=== PATIENT | female | born 1940 | race Caucasian/White ===

== ENCOUNTER → 2016-10-22 | Outpatient (CLI) | payer BC, OTHER ==
[~2016-10-22] MED LIST: LZL125 PO; MULT-190 PO; NAPR1CAP12 PO; NAPR220T40 PO; SIMV20TA2 PO
--- NOTE | 2016-10-22 08:16 | DIAGNOSTIC IMAGING REPORT ---
CHEST CT WITHOUT CONTRAST CT DOSE: 214.31 mGy.cm HISTORY: Tumor removed within the right chest. Follow-up. TECHNIQUE: Multiaxial CT images of the chest were performed without contrast. COMPARISON: Chest 03/23/2016. FINDINGS: The patient is status post resection of a large right pleural-based mass. The right lower lobe is surgically absent. Few linear scarlike densities remaining at the base of the right middle lobe. Volume loss and mild right mediastinal shift due to the right lower lobectomy. A 2 mm subpleural density within the left upper lobe on image 85 likely represents an area of scarring. Tiny focus of tree-in-bud nodular opacities within the lingula on image 157. No suspicious pulmonary nodules identified. No focal lung consolidations to suggest pneumonia. Remaining central airways are patent. Small right posterior basilar hydropneumothorax. This likely represents residual postoperative change. Postthoracotomy changes within the right ribs. No suspicious lytic or blastic osseous lesions. A few hypodense lesions within the kidneys and liver. These favor cysts. Peripelvic cysts versus fullness within the left renal collecting system. This is also unchanged. No significant change in size in the multiple small right posterior medial extrapleural soft tissue nodules. Dominant nodule on image 184 measures 12 x 5 mm. Few small nodules/cysts within the breasts remain unchanged. There are surgical clips within the right axilla. No mediastinal or hilar lymphadenopathy. IMPRESSION: 1. Status post resection of a large right-sided pleural-based mass. No evidence for recurrent or residual mass. 2. Multiple small right posterior medial extrapleural soft tissue nodules remain unchanged in size. Continued follow up is recommended to exclude the possibility of metastatic disease. 3. Small right posterior basal hydropneumothorax. 4. Postoperative changes within the right hemithorax as described above. Electronically signed by: Ovidio Albright M.D. 10/22/2016 8:15 AM Dictated Date/Time: 10/22/2016 7:56 AM
== END | disposition home or self-care (01) ==
LOC: C.CTS 07:16
PROVIDERS: ATTEND Surgery
DX: K21.9 Gastro-esophageal reflux disease without esophagitis (principal); R22.2 Localized swelling, mass and lump, trunk; Z98.890 Other specified postprocedural states

== ENCOUNTER → 2016-10-31 | Outpatient (CLI) | payer BC, OTHER ==
--- NOTE | 2016-10-31 16:13 | MAMMOGRAPHY REPORT ---
BILATERAL DIGITAL SCREENING MAMMOGRAM TOMOSYNTHESIS WITH CAD: 10/31/2016 CLINICAL HISTORY: Asymptomatic. Personal history of breast cancer. TECHNIQUE: Breast tomosynthesis in addition to standard 2D mammography was performed. Current study was also evaluated with a Computer Aided Detection (CAD) system. COMPARISON: Comparison is made to exams dated: 10/31/2015 mammogram, 10/28/2013 mammogram, 10/27/2012 m ammogram, 10/22/2011 mammogram, 10/29/2014 mammogram, and 01/03/2011 ultrasound biopsy - [facility]. BREAST COMPOSITION: There are scattered areas of fibroglandular density in both breasts. FINDINGS: There are stable bilateral circumscribed masses scattered in the breast. Expected dima ectural distortion and associated surgical clips in the upper outer posterior right breast at the si te of prior lumpectomy. There are benign coarse calcifications. A stable metallic biopsy marker in the anterior left breast. No new suspicious mass, architectural distortion or cluster of microcalc ifications is seen. IMPRESSION: ACR BI-RADS CATEGORY 2: BENIGN There is no mammographic evidence of malignancy. A 1 year screening mammogram is recommended. The p atient will receive written notification of the results. Approximately 10% of breast cancers are not detected with mammography. A negative mammographic repor t should not delay biopsy if a clinically suggestive mass is present. Altagracia Carrion M.D. ay/:10/31/2016 12:51:35 Prosthetic Technician: Sheila Tavarez, [facility] letter sent: Normal / BI-RADS Code: ACR BI-RADS Category 2: Benign
== END | disposition home or self-care (01) ==
LOC: C.MAMM 08:06
PROVIDERS: ATTEND Obstetrics & Gynecology
DX: Z12.31 Encounter for screening mammogram for malignant neoplasm of breast (principal)

== ENCOUNTER → 2016-11-02 | Outpatient (CLI) | payer BC, OTHER ==
[2016-11-02 09:50] LABS: URINE APPEARANCE CLEAR (CLEAR); URINE BILIRUBIN NEG (NEG); URINE COLOR YELLOW; URINE EPITHELIAL CELL AUTO >30 /lpf (0-5); URINE NITRITE NEG (NEG); URINE SPECIFIC GRAVITY 1.018 (1.000-1.030); UROBILINOGEN NEG (NEG)
[2016-11-02 09:53] LABS: BASO % 0.3 %; BASO ABS # 0.02 K/uL (0-0.2); COMPLETE YES; EOS % 2.6 %; HEMATOCRIT 44.8 % (37-47); IG% 0.3 %; LYMPH % 16.3 %; LYMPH ABS # 1.12 K/uL (1.2-3.4); MEAN CELL VOLUME 87.3 fL (80-100); MEAN CORPUSCULAR HEMOGLOBIN 29.2 pg (25-34); MEAN CORPUSCULAR HGB CONC 33.5 g/dl (32-36); MONO % 5.8 %; NEUT % 74.7 %; PLATELET COUNT 286 K/uL (130-400); RED BLOOD COUNT 5.13 M/uL (4.2-5.4); WHITE BLOOD COUNT 6.88 K/uL (4.8-10.8)
[2016-11-02 10:02] LABS: AST/SGOT 14 U/L (15-37); BLOOD UREA NITROGEN 24 mg/dl (7-18); BUN/CREATININE RATIO 25.7 (10-20); CALCIUM 9.1 mg/dl (8.5-10.1); CARBON DIOXIDE 28 mmol/L (21-32); CHLORIDE 108 mmol/L (98-107); CREATININE 0.92 mg/dl (0.60-1.20); GLUCOSE 85 mg/dl (70-99); MANUAL MICROSCOPIC REQUIRED? NO; POTASSIUM 3.7 mmol/L (3.5-5.1); REVIEW REQ? YES; SODIUM 145 mmol/L (136-145)
[2016-11-02 10:12] LABS: ALT/SGPT 27 U/L (12-78); CHOLESTEROL 154 mg/dl (0-200); CHOLESTEROL/HDL RATIO 2.5; HDL CHOLESTEROL 62 mg/dl; LDL CHOLESTEROL CALCULATED 75 mg/dl; TRIGLYCERIDES 85 mg/dl (0-150); VERY LOW DENSITY LIPOPROT CALC 17 mg/dl
[2016-11-02 10:26] LABS: ESTIMATED AVERAGE GLUCOSE 114 mg/dl; HA1C FLAG Normal (Normal)
--- NOTE | 2016-11-06 14:05 | CODING QUERY MEDICAL NECESSITY ---
SUPPORTING DIAGNOSIS NEEDED A supporting diagnosis is required for the test/procedure performed on this patient in order for us to be reimbursed by the patient's insurance. Please provide a supporting diagnosis for the following test/procedure listed below next to the test name along with your signature. *If there is no additional diagnosis for this patient that would support the following test/procedure please document that below next to the test/procedure. Test(s)/Procedure(s) that require a supporting diagnosis: * GLYCATED HEMOGLOBIN DIAGNOSIS: * DOS: 11/02/16 Provider Signature: Date: Thank you Silvia Jack Health Information Management Once completed, please kindly fax back to [phone] For questions please call [phone]
== END | disposition home or self-care (01) ==
LOC: C.LAB 06:28
PROVIDERS: ATTEND Internal Medicine
DX: E78.00 Pure hypercholesterolemia, unspecified (principal); R73.9 Hyperglycemia, unspecified

== ENCOUNTER → 2016-11-12 | Outpatient (CLI) | payer BC, OTHER ==
[2016-11-12 17:43] LABS: BASO % 0.3 %; BASO ABS # 0.02 K/uL (0-0.2); COMPLETE YES; EOS % 2.1 %; HEMATOCRIT 45.3 % (37-47); IG% 0.4 %; LYMPH % 15.2 %; LYMPH ABS # 1.03 K/uL (1.2-3.4); MEAN CELL VOLUME 87.1 fL (80-100); MEAN CORPUSCULAR HEMOGLOBIN 29.2 pg (25-34); MEAN CORPUSCULAR HGB CONC 33.6 g/dl (32-36); MEAN PLATELET VOLUME 9.8 fL (7.4-10.4); MONO % 7.8 %; NEUT % 74.2 %; PLATELET COUNT 298 K/uL (130-400); WHITE BLOOD COUNT 6.76 K/uL (4.8-10.8)
--- NOTE | 2016-11-16 12:05 | CODING QUERY MEDICAL NECESSITY ---
SUPPORTING DIAGNOSIS NEEDED A supporting diagnosis is required for the test/procedure performed on this patient in order for us to be reimbursed by the patient's insurance. Please provide a supporting diagnosis for the following test/procedure listed below next to the test name along with your signature. *If there is no additional diagnosis for this patient that would support the following test/procedure please document that below next to the test/procedure. Test(s)/Procedure(s) that require a supporting diagnosis: * C-REACTIVE PROTEIN DIAGNOSIS: * DOS: 11/12/16 Provider Signature: Date: Thank you Silvia Jack Health Information Management Once completed, please kindly fax back to [phone] For questions please call [phone]
== END | disposition home or self-care (01) ==
LOC: C.LAB1850 15:59
PROVIDERS: ATTEND Internal Medicine
DX: E78.00 Pure hypercholesterolemia, unspecified (principal); M19.90 Unspecified osteoarthritis, unspecified site

== ENCOUNTER → 2016-11-14 | Outpatient (CLI) | payer BC, OTHER ==
--- NOTE | 2016-11-14 10:15 | DIAGNOSTIC IMAGING REPORT ---
ABDOMINAL ULTRASOUND, RIGHT UPPER QUADRANT HISTORY: Hypercholesterolemia. Abdominal pain. COMPARISON: None. FINDINGS: The liver morphology is normal. Several hepatic cysts are noted. Several echogenic hepatic lesions measure up to 1.6 cm. There is no biliary ductal dilatation. The pancreas is sonographically normal. No gallbladder wall thickening is noted. A few nonmobile echogenic structures within the gallbladder without associated shadowing measure up to 7 mm. There are right renal cyst. There are suspected right-sided parapelvic cysts. IMPRESSION: 1. No evidence of acute cholecystitis. 2. Several nonmobile echogenic structures within the gallbladder which could reflect polyps or nonshadowing stones. 3. Several echogenic hepatic lesions. These are nonspecific although favor hemangiomas. A right upper quadrant ultrasound in 6 months to ensure stability is recommended. 4. Suspected right-sided nephrolithiasis. Tubular anechoic structures within the right renal sinus favor parapelvic cysts. Right hydronephrosis could appear similar although is considered less likely. Electronically signed by: Clement Geronimo M.D. 11/14/2016 10:14 AM Dictated Date/Time: 11/14/2016 9:06 AM
== END | disposition home or self-care (01) ==
LOC: C.ULTR 08:25
PROVIDERS: ATTEND Internal Medicine
DX: E78.00 Pure hypercholesterolemia, unspecified (principal); K76.9 Liver disease, unspecified

== ENCOUNTER → 2017-03-19 | Day surgery (SDC) | payer BC, OTHER ==
[2017-03-13 07:53] VITALS: Ht 167.6 cm; Wt 61.4 kg
[~2017-03-19] VITALS: Ht 167.6 cm; Wt 61.4 kg
[~2017-03-19] MED LIST changes: +ATROPINE SULFATE 0.1 MG/ML 5ML SYR IV PRN; +EpHEDrine SULFATE INJ 50 MG/ML AMP IV PRN; +LIDOCAINE HCL 2% 2 ML VIAL (20MG/ML) ONE; -NAPR1CAP12 PO; +PROPOFOL IV EMULSION 10 MG/ML 20 ML VIAL IV ONE; +SODIUM CHLORIDE 0.9% 500ML 500 ML IV ONE
--- NOTE | 2017-03-19 10:41 | Endo History and Physical ---
History & Physical Date of Service: Mar 19, 2017. Chief Complaint: Rectal Bleeding Referring Physician: Shamar Espinosa History of Present Illness 76 yo CF who presents for colonoscopy secondary to rectal bleeding. Past Medical History Arthritis, High Cholesterol, Other Past Surgical History Hx Cardiac Surgery: No Hx Internal Defibrillator: No Hx Pacemaker: No Hx Abdominal Surgery: Yes (ANA MARÍA, D&C) Hx of Implantable Prosthesis: No Hx Post-Op Nausea and Vomiting: No Hx Cancer Surgery: Yes (RT LUMPECTOMY WITH NODE DISECTION) Hx Thoracic Surgery: Yes (THORACOTOMY) Hx Orthopedic: No Hx Urinary Tract Surgery: No Family History None Social History Smoking Status: Never Smoker Hx Substance Use: No Hx Alcohol Use: No Allergies Coded Allergies: Penicillins (Verified Allergy, Mild, UNKNOWN, 03/13/17) Cephalosporins (Verified Allergy, Unknown, KEFLEX PER UNCODED ALLERGIES- UNKNOWN TO PT, 03/13/17) Current Medications Reported Home Medications Medications Dose Route/Sig Max Daily Dose Days Date Category Ocuvite Preservision (Multivitamins/Minerals) 1 Tab Tab 1 Tab PO BID 03/13/17 Reported Aleve (Naproxen Sodium) 220 Mg Tab 220 Mg PO DAILY PRN 03/13/17 Reported Zocor (Simvastatin) 20 Mg Tab 20 Mg PO HS 03/13/17 Reported Indapamide 1.25 Mg Tab 1 Tab PO QAM 03/13/17 Reported Vital Signs Weight (Kilograms): 61.36 Height (Feet): 5 Height (Inches): 6 Date Time Temp Pulse Resp B/P (MAP) Pulse Ox O2 Delivery O2 Flow Rate FiO2 03/19/17 10:13 36.6 72 20 160/73 (102) 96 Room Air Physical Exam General Appearance: WD/WN, no apparent distress Respiratory/Chest: Auscultation: breath sounds normal Cardiovascular: Heart Auscultation: RRR Abdomen: Bowel Sounds: normal Inspection & Palpation: soft, non-distended, no tenderness, guarding & rebound Assessment and Plan Assessment: 76 yo CF who presents for colonoscopy secondary to rectal bleeding. Plan: Proceed with colonoscopy.
--- NOTE | 2017-03-19 10:57 | Discharge Instructions ---
Endoscopy Patient Instructions Date / Procedure(s) Performed Mar 19, 2017. Colonoscopy Allergy Information Coded Allergies: Penicillins (Verified Allergy, Mild, UNKNOWN, 03/13/17) Cephalosporins (Verified Allergy, Unknown, KEFLEX PER UNCODED ALLERGIES- UNKNOWN TO PT, 03/13/17) Discharge Date / Findings Mar 19, 2017. Diverticulosis Internal and External hemorrhoids Medication Instructions OK to resume all medications today as prescribed Medications Dose Route/Sig Max Daily Dose Days Date Category Ocuvite Preservision (Multivitamins/Minerals) 1 Tab Tab 1 Tab PO BID 03/13/17 Reported Aleve (Naproxen Sodium) 220 Mg Tab 220 Mg PO DAILY PRN 03/13/17 Reported Zocor (Simvastatin) 20 Mg Tab 20 Mg PO HS 03/13/17 Reported Indapamide 1.25 Mg Tab 1 Tab PO QAM 03/13/17 Reported Provider Instructions Activity Restrictions - No exercising or heavy lifting for 24 hours. - Do not drink alcohol the day of the procedure. - Do not drive a car or operate machinery until the day after the procedure. - Do not make any important decisions or sign important papers in 24 hours after the procedure. Following Day: - Return to full activity which may include returning to work/school. Diet Start your diet with liquids and light foods (jello, soup, juice, toast). Then eat your usual diet if not nauseated. Treatment For Common After Affects For mild abdominal pain, bloating, or excessive gas: - Rest - Eat lightly - Lie on right side Follow-Up Information Follow-up with Shamar Espinosa as scheduled Anesthesia Information What You Should Know You have had a procedure that required some medicine to reduce anxiety and discomfort. This treatment is called moderate sedation. After receiving the treatment, you may be sleepy, but you will be able to breathe on your own. The effects of the treatment may last for several hours. Follow these instructions along with Activity/Diet recommendations noted above: * Do NOT do anything where dizziness or clumsiness would be dangerous. * Rest quietly at home today, then you can be up and about tomorrow. * Have a responsible person stay with you the rest of today. * You may have had an I.V. today. If so, you may take the dressing off later today. Recommendations Call your doctor if: * Trouble breathing * Continuous vomiting for more than 24 hours * Temperature above 101 degrees * Severe abdominal pain or bloating * Pain not relieved by pain medicine ordered * There is increased drainage or redness from any incision * A large amount of rectal bleeding greater than 2-3 tablespoons. (If you had a polyp/s removed or have hemorrhoids, a small amount of blood - from the rectum is to be expected.) * You have any unanswered questions or concerns. IN THE EVENT OF A SERIOUS EMERGENCY, GO TO THE NEAREST EMERGENCY ROOM Your discharge instructions were prepared by provider Chad Ballard. Patient Instructions Signature Page Kalyn Driver Patient (or Guardian) Signature/Date: I have read and understand the instructions given to me by my caregivers. Caregiver/RN/Doctor Signature/Date: The above-named patient and/or guardian has received patient instructions on this date. + Original Patient Signature Page (only) stays with chart. Please make copy for patient.
--- NOTE | 2017-03-19 11:03 | GI REPORT ---
Procedure Date: 03/19/2017 10:08 AM Procedure: Colonoscopy Indications: Rectal bleeding Medicines: Monitored Anesthesia Care Complications: No immediate complications. Estimated Blood Loss: Estimated blood loss: none. Procedure: Pre-Anesthesia Assessment: - Prior to the procedure, a History and Physical was performed, and patient medications and allergies were reviewed. The patient's tolerance of previous anesthesia was also reviewed. The risks and benefits of the procedure and the sedation options and risks were discussed with the patient. All questions were answered, and informed consent was obtained. Prior Anticoagulants: The patient has taken no previous anticoagulant or antiplatelet agents. ASA Grade Assessment: III - A patient with severe systemic disease. After reviewing the risks and benefits, the patient was deemed in satisfactory condition to undergo the procedure. After I obtained informed consent, the scope was passed under direct vision. Throughout the procedure, the patient's blood pressure, pulse, and oxygen saturations were monitored continuously. The Scope was introduced through the anus and advanced to the terminal ileum. The colonoscopy was performed without difficulty. The patient tolerated the procedure well. The quality of the bowel preparation was good. The terminal ileum, ileocecal valve, appendiceal orifice, and rectum were photographed. Findings: Multiple small-mouthed diverticula were found in the sigmoid colon. Non-bleeding external and internal hemorrhoids were found during retroflexion and during perianal exam. The hemorrhoids were small. Impression: - Diverticulosis in the sigmoid colon. - Non-bleeding external and internal hemorrhoids. - No specimens collected. Recommendation: - Resume previous diet. - Continue present medications. - No repeat colonoscopy due to age and the absence of advanced adenomas. - Return to primary care physician as previously scheduled. Chad Ballard, DO 03/19/2017 11:02:24 AM This report has been signed electronically. Note Initiated On: 03/19/2017 10:08 AM I attest to the content of the Intraoperative Record and orders documented therein, exceptions below
[2017-03-19 11:28] VITALS: BP 134/82; PULSE 65; O2SAT 97
--- NOTE | 2017-03-19 11:50 | Anesthesiology Progress Note ---
Anesthesia Post Op Note Date & Time Mar 19, 2017 at 11:50 Vital Signs Pain Intensity: 0 Vital Signs Past 12 Hours Date Time Temp Pulse Resp B/P (MAP) Pulse Ox O2 Delivery O2 Flow Rate FiO2 03/19/17 11:28 65 20 134/82 (99) 97 Room Air 03/19/17 11:13 65 20 146/77 (100) 97 Room Air 03/19/17 10:58 75 24 133/67 (89) 96 Room Air 03/19/17 10:13 36.6 72 20 160/73 (102) 96 Room Air Notes Mental Status: alert / awake / arousable, participated in evaluation Pt Amnestic to Procedure: Yes Nausea / Vomiting: adequately controlled Pain: adequately controlled Airway Patency, RR, SpO2: stable & adequate BP & HR: stable & adequate Hydration State: stable & adequate Anesthetic Complications: no major complications apparent
== END | disposition home or self-care (01) ==
LOC: C.GI 09:26
PROVIDERS: ATTEND Internal Medicine
DX: K62.5 Hemorrhage of anus and rectum (principal); K57.30 Diverticulosis of large intestine without perforation or abscess without bleeding; K64.4 Residual hemorrhoidal skin tags; K64.8 Other hemorrhoids; G47.33 Obstructive sleep apnea (adult) (pediatric); E78.00 Pure hypercholesterolemia, unspecified; I10 Essential (primary) hypertension; E78.5 Hyperlipidemia, unspecified; G47.30 Sleep apnea, unspecified; Z68.22 Body mass index [BMI] 22.0-22.9, adult; Z85.3 Personal history of malignant neoplasm of breast; Z88.0 Allergy status to penicillin

== ENCOUNTER → 2017-04-08 | Outpatient (CLI) | payer OTHER, BC ==
[~2017-04-08] MED LIST changes: -ATROPINE SULFATE 0.1 MG/ML 5ML SYR IV PRN; -EpHEDrine SULFATE INJ 50 MG/ML AMP IV PRN; -LIDOCAINE HCL 2% 2 ML VIAL (20MG/ML) ONE; -PROPOFOL IV EMULSION 10 MG/ML 20 ML VIAL IV ONE; -SODIUM CHLORIDE 0.9% 500ML 500 ML IV ONE
--- NOTE | 2017-04-08 14:22 | DIAGNOSTIC IMAGING REPORT ---
C-SPINE ROUTINE 4 OR 5 VIEWS CLINICAL HISTORY: 76 years-old Female presenting with NECK PAIN. TECHNIQUE: Frontal, lateral, bilateral oblique, and open-mouth odontoid views of the cervical spine were obtained. COMPARISON: None. FINDINGS: The C7 vertebral body is visualized. Multifocal degenerative changes. Vertebral body heights intact. Intervertebral disc space loss from C3-4 through C6-7. Lateral masses of C1 articulate normally with C2. No evidence of osseous neural foraminal narrowing. Slight widening of the facet joints at C5-6 bilaterally. Alignment otherwise preserved. No prevertebral soft tissue swelling. Possible suture margin noted in the paramediastinal right upper lobe. IMPRESSION: 1. Slight widening of the facet joints at C5-6 bilaterally. This could be degenerative in etiology given the presence of multilevel degenerative changes. Alignment is otherwise preserved. Electronically signed by: Renaldo Sage 04/08/2017 2:21 PM Dictated Date/Time: 04/08/2017 2:15 PM
== END | disposition home or self-care (01) ==
LOC: C.RAD1850 14:01
PROVIDERS: ATTEND Physician Assistant
DX: M54.2 Cervicalgia (principal)

== ENCOUNTER → 2017-05-27 | Outpatient (CLI) | payer BC, OTHER ==
[2017-05-27 09:39] LABS: BASO % 0.3 %; BASO ABS # 0.02 K/uL (0-0.2); COMPLETE YES; EOS % 3.9 %; HEMATOCRIT 46.7 % (37-47); IG% 0.3 %; LYMPH % 16.6 %; LYMPH ABS # 0.99 K/uL (1.2-3.4); MEAN CELL VOLUME 89.1 fL (80-100); MEAN CORPUSCULAR HEMOGLOBIN 28.8 pg (25-34); MEAN CORPUSCULAR HGB CONC 32.3 g/dl (32-36); MEAN PLATELET VOLUME 9.7 fL (7.4-10.4); MONO % 6.5 %; NEUT % 72.4 %; PLATELET COUNT 291 K/uL (130-400); RED BLOOD COUNT 5.24 M/uL (4.2-5.4); WHITE BLOOD COUNT 5.97 K/uL (4.8-10.8)
[2017-05-27 10:06] LABS: ESTIMATED AVERAGE GLUCOSE 117 mg/dl; HA1C FLAG Normal (Normal)
[2017-05-27 10:12] LABS: AST/SGOT 13 U/L (15-37); BLOOD UREA NITROGEN 21 mg/dl (7-18); BUN/CREATININE RATIO 25.8 (10-20); CALCIUM 9.1 mg/dl (8.5-10.1); CARBON DIOXIDE 28 mmol/L (21-32); CHLORIDE 108 mmol/L (98-107); GLUCOSE 82 mg/dl (70-99); POTASSIUM 3.6 mmol/L (3.5-5.1); SODIUM 144 mmol/L (136-145)
[2017-05-27 10:23] LABS: ALT/SGPT 22 U/L (12-78); CHOLESTEROL 148 mg/dl (0-200); CHOLESTEROL/HDL RATIO 2.8; HDL CHOLESTEROL 53 mg/dl; LDL CHOLESTEROL CALCULATED 70 mg/dl; TRIGLYCERIDES 123 mg/dl (0-150); VERY LOW DENSITY LIPOPROT CALC 25 mg/dl
--- NOTE | 2017-06-05 12:03 | CODING QUERY MEDICAL NECESSITY ---
CQSUPPORTING DIAGNOSIS NEEDED A supporting diagnosis is required for the test/procedure performed on this patient in order for us to be reimbursed by the patient's insurance. Please provide a supporting diagnosis for the following test/procedure listed below next to the test name along with your signature. *If there is no additional diagnosis for this patient that would support the following test/procedure please document that below next to the test/procedure. Test(s)/Procedure(s) that require a supporting diagnosis: DOS 05/27/17 GLYCATED HEMOGLOBIN TEST Provider Signature: Date: Thank you Tashia Martinez Health Information Management Once completed, please kindly fax back to [phone] For questions please call [phone]
== END | disposition home or self-care (01) ==
LOC: C.LAB 06:22
PROVIDERS: ATTEND Internal Medicine
DX: E78.00 Pure hypercholesterolemia, unspecified (principal); R73.9 Hyperglycemia, unspecified

== ENCOUNTER → 2017-08-07 | Outpatient (CLI) | payer BC, OTHER ==
[2016-08-08 13:18] VITALS: BP 128/67; PULSE 80
[2017-08-07 13:14] VITALS: BP 137/77; PULSE 76; TEMP 36.9; O2SAT 97
--- NOTE | 2017-08-07 14:06 | Radiation Oncology Follow-Up ---
Radiation Oncology Follow-Up Date of Visit Aug 07, 2017. Reason For Visit Annual follow-up Radiation Completion Date 01/06/06 Diagnosis (1) Intraductal carcinoma in situ of right breast Status: Resolved Onset Date: 2005 Stage: 0 Permanent Comment: High-grade DCIS of the right breast Tis apical N0M0 stage 0 Status post completion of radiation therapy 01/16/2006 received 6120 cGy Status post left breast biopsy 01/03/2011 showing adenosis with associated microcalcifications, fibrocystic changes with associated ductal hyperplasia Last Edited By: Lakia Jacobo on Aug 03, 2015 15:04 Interim History She's been doing well over this past year. She denies any changes to her breast. She's noted no masses or tenderness no change of the axilla. She's had no swelling of her arm. She is up-to-date on mammography. She had a mammogram 10/31/2016. There is no mammographic evidence of malignancy. A one- year screening mammogram was recommended. Her only complaint is generalized joint discomfort. This can be up to level . The pain is controlled with [id number] analgesics. She did have a colonoscopy 03/19/2017. This showed diverticulosis and hemorrhoids. She has been doing well from a respiratory standpoint. She has noted no increased shortness of breath. She has done well since her surgery in 2015. Allergies Coded Allergies: Penicillins (Verified Allergy, Mild, UNKNOWN, 03/13/17) Cephalosporins (Verified Allergy, Unknown, KEFLEX PER UNCODED ALLERGIES- UNKNOWN TO PT, 03/13/17) Home Medications Scheduled Indapamide (Indapamide), 1 TAB PO QAM Ocuvite Preservision (Ocuvite Preservision), 1 TAB PO BID Simvastatin (Zocor), 20 MG PO HS Scheduled PRN Naproxen Sodium (Aleve), 220 MG PO DAILY PRN for Pain Review of Systems Gastrointestinal: Symptoms: WNL, Rectal Bleeding GI Comments: Had colonoscopy on 03/19/17 diverticulosis and hemorrhoids; Oral: Symptoms: No Problems Respiratory: Symptoms: WNL Urinary: Symptoms: WNL Skin: Symptoms: No Problems Breast: Right Upper Arm Measurement: 29.0 Right Mid Arm Measurement: 23.0 Right Wrist Measurement: 16.5 Left Upper Arm Measurement: 28.5 Left Mid Arm Measurement: 22.5 Left Wrist Measurement: 15.8 Arm Dominence: Right Physical Exam Vital Signs Date Time Temp Pulse Resp B/P (MAP) Pulse Ox O2 Delivery O2 Flow Rate FiO2 08/07/17 13:14 36.9 76 20 137/77 97 Pain: Patient Pain Scale: 0 - 10 Initial Pain Intensity: 0.0 Fatigue: None General Appearance: no apparent distress Eyes: normal inspection, EOMI ENT: normal ENT inspection, hearing grossly normal Neck: no adenopathy, thyroid normal Respiratory/Chest: lungs clear, no respiratory distress, no accessory muscle use Breast: Breast examination reveals well-healed incision of the right breast. There are no masses or tenderness and no axillary adenopathy. She has no skin retractions or nipple changes. Using the [place] score cosmesis she has a excellent outcome. The left breast showed no masses or tenderness and no axillary adenopathy. Cardiovascular: regular rate, rhythm, no gallop, no murmur Extremities: no pedal edema Neurologic/Psychiatric: no motor/sensory deficits, alert, normal mood/affect Skin: warm/dry Laboratory Studies Test 05/22/17 12:06 05/27/17 06:46 White Blood Count 5.66 K/uL (4.8-10.8) 5.97 K/uL (4.8-10.8) Red Blood Count 5.11 M/uL (4.2-5.4) 5.24 M/uL (4.2-5.4) Hemoglobin 15.2 g/dL (12.0-16.0) 15.1 g/dL (12.0-16.0) Hematocrit 45.9 % (37-47) 46.7 % (37-47) Mean Corpuscular Volume 89.8 fL (80-100) 89.1 fL (80-100) Mean Corpuscular Hemoglobin 29.7 pg (25-34) 28.8 pg (25-34) Mean Corpuscular Hemoglobin Concent 33.1 g/dl (32-36) 32.3 g/dl (32-36) Platelet Count 261 K/uL (130-400) 291 K/uL (130-400) Mean Platelet Volume 9.1 fL (7.4-10.4) 9.7 fL (7.4-10.4) Neutrophils (%) (Auto) 68.8 % 72.4 % Lymphocytes (%) (Auto) 18.2 % 16.6 % Monocytes (%) (Auto) 8.5 % 6.5 % Eosinophils (%) (Auto) 4.1 % 3.9 % Basophils (%) (Auto) 0.2 % 0.3 % Neutrophils # (Auto) 3.90 K/uL (1.4-6.5) 4.32 K/uL (1.4-6.5) Lymphocytes # (Auto) 1.03 K/uL (1.2-3.4) 0.99 K/uL (1.2-3.4) Monocytes # (Auto) 0.48 K/uL (0.11-0.59) 0.39 K/uL (0.11-0.59) Eosinophils # (Auto) 0.23 K/uL (0-0.5) 0.23 K/uL (0-0.5) Basophils # (Auto) 0.01 K/uL (0-0.2) 0.02 K/uL (0-0.2) RDW Standard Deviation 45.6 fL (36.4-46.3) 44.9 fL (36.4-46.3) RDW Coefficient of Variation 13.8 % (11.5-14.5) 13.7 % (11.5-14.5) Immature Granulocyte % (Auto) 0.2 % 0.3 % Immature Granulocyte # (Auto) 0.01 K/uL (0.00-0.02) 0.02 K/uL (0.00-0.02) Sodium Level 144 mmol/L (136-145) Potassium Level 3.6 mmol/L (3.5-5.1) Chloride Level 108 mmol/L (98-107) Carbon Dioxide Level 28 mmol/L (21-32) Anion Gap 8.0 mmol/L (3-11) Blood Urea Nitrogen 21 mg/dl (7-18) Creatinine 0.80 mg/dl (0.60-1.20) Estimated GFR () 82.4 Estimated GFR (Non- 71.1 BUN/Creatinine Ratio 25.8 (10-20) Random Glucose 82 mg/dl (70-99) Estimated Average Glucose 117 mg/dl Hemoglobin A1c 5.7 % (4.5-5.6) Calcium Level 9.1 mg/dl (8.5-10.1) Aspartate Amino Transferase (AST) 13 U/L (15-37) Alanine Aminotransferase (ALT) 22 U/L (12-78) Total Creatine Kinase 74 U/L (26-192) Triglycerides Level 123 mg/dl (0-150) Cholesterol Level 148 mg/dl (0-200) HDL Cholesterol 53 mg/dl LDL Cholesterol, Calculated 70 mg/dl VLDL Cholesterol, Calculated 25 mg/dl Cholesterol/HDL Ratio 2.8 Thyroid Stimulating Hormone (TSH) 2.170 uIu/ml (0.300-4.500) Additional Studies Patient: TRAVIS BORREGO [facility] Rec: [id number] Address1: Critical access hospital[facility] Address2: Acct ID: [id number] Date: 1940 Sex: F Ref Phy: Att Phy: Jaiden Bajwa M.D. Flores Phy: Shamar Espinosa M.D. Inter Phy: Altagracia Carrion MD [facility] Zip: [place] [address] SC: C.MAMM Report #: [id number] Nursing Home Assistant Administrator: MALACHI Diagnosis: ASYMPTOMATAIC Service Date: 10/31/16 MNE: [id number] Ordering Dr: Jaiden Bajwa M.D. CC: Jaiden Bajwa M.D. CONF: DICTATED BY: Altagracia Carrion MD MAMMOGRAPHY REPORT BILATERAL DIGITAL SCREENING MAMMOGRAM TOMOSYNTHESIS WITH CAD: 10/31/2016 CLINICAL HISTORY: Asymptomatic. Personal history of breast cancer. TECHNIQUE: Breast tomosynthesis in addition to standard 2D mammography was performed. Current study was also evaluated with a Computer Aided Detection (CAD ) system. COMPARISON: Comparison is made to exams dated: 10/31/2015 mammogram, 10/28/2013 mammogram, 10/27/2012 mammogram, 10/22/2011 mammogram, 10/29/2014 mammogram, and 01/03/2011 ultrasound biopsy - [facility]. BREAST COMPOSITION: There are scattered areas of fibroglandular density in both breasts. FINDINGS: There are stable bilateral circumscribed masses scattered in the breast. Expected architectural distortion and associated surgical clips in the upper outer posterior right breast at the site of prior lumpectomy. There are benign coarse calcifications. A stable metallic biopsy marker in the anterior left breast. No new suspicious mass, architectural distortion or cluster of microcalcifications is seen. IMPRESSION: ACR BI-RADS CATEGORY 2: BENIGN There is no mammographic evidence of malignancy. A 1 year screening mammogram is recommended. The patient will receive written notification of the results. Approximately 10% of breast cancers are not detected with mammography. A negative mammographic report should not delay biopsy if a clinically suggestive mass is present. Altagracia Carrion M.D. ay/:10/31/2016 12:51:35 Laundry Housekeeping Aide: Sheila Tavarez, [facility] letter sent: Normal 10/01 BI-RADS Code: ACR BI-RADS Category 2: Benign Dictated by: Altagracia Carrion MD Signed by: Altagracia Carrion MD Assessment & Plan Plan: Continue annual mammography. She does have mammograms scheduled for October. Continue regular follow-up with her primary care provider. We asked her to return to our office in 1 year. She may call if she has any questions or concerns in the interim. Total Time In Follow-Up I spent 20 minutes speaking to the patient performing examination. I spent 15 minutes reviewing information and completing this note. Copy To Shamar Espinosa M.D.
== END | disposition home or self-care (01) ==
LOC: C.ONC 13:01
PROVIDERS: ATTEND Physician Assistant Medical
DX: Z08 Encounter for follow-up examination after completed treatment for malignant neoplasm (principal); Z92.3 Personal history of irradiation; Z85.3 Personal history of malignant neoplasm of breast

== ENCOUNTER → 2017-10-29 | Outpatient (CLI) | payer BC, OTHER ==
--- NOTE | 2017-10-29 07:34 | DIAGNOSTIC IMAGING REPORT ---
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 TECHNIQUE: Multidetector CT imaging of the chest was performed without the use of intravenous contrast. IV contrast: None. A dose lowering technique was used consistent with the principles of ALARA (as low as reasonably achievable). COMPARISON: 10/22/2016. CT DOSE (mGy.cm): The estimated cumulative dose is 200.84 mGy.cm. FINDINGS: Zipper Setter Chainstitch topogram: Architectural distortion of the right lung with rightward mediastinal shift, unchanged. On soft tissue windows, normal thyroid. Several ovoid masses in the breasts are indeterminate but may relate to intramammary lymph nodes. No axillary, supraclavicular, or mediastinal lymphadenopathy. Evaluation of the elizabeth limited without intravenous contrast. Atherosclerosis of the aorta. Mild multichamber enlargement of the heart. Coronary artery calcification. No pericardial or pleural effusion though there is extensive right pleural thickening as seen on prior exam. The previously noted soft tissue nodular focus along the right posterior paramediastinal region is unchanged in size and appearance and is intimately associated with transiting intercostal vessels. The slightly more inferior previously noted nodule is less apparent on the current exam. Several small soft tissue nodules noted in the anterior mediastinal fat (series 4 image 78 and 81). Prominent upper pole right renal cyst partially visualized. Several parapelvic cysts also suggested in the left kidney, incompletely visualized. On lung windows, the patient is status post right lower lobectomy. Resulting architectural distortion of the residual right upper and middle lobes is hyperexpansion. Peripheral subpleural reticulation in the right upper and middle lobes may relate to postsurgical change and/or scarring. Interval development of a lobular solid 1.5 cm nodule in the left upper lobe (series 4 image 152). Additional more central left upper lobe solid pulmonary nodule measuring 0.9 cm (see series 4 image 129). Diminutive fissural solid 3 mm nodule along the left major fissure (series 4 image 170). Dependent nodularity at the left lower lobe may represent atelectasis. Large airways patent. On bone windows, postsurgical changes of multiple right ribs. IMPRESSION: 1. Findings highly suspicious for recurrent/metastatic disease to the left upper lobe. The diminutive fissural nodule along the left major fissure may represent a pleural or parenchymal site of disease. 2. Post surgical changes of right lower lobectomy. Extensive right pleural thickening is not significantly changed from prior and may represent postsurgical scarring. 3. The previously noted extrapleural soft tissue nodules along the right posterior paramediastinal region are stable to less apparent on the current exam. These are not overly convincing for pleural metastatic disease. 4. New small nodularity in the right aspect of the anterior mediastinal fat raises concern for metastatic disease versus small lymph nodes. Attention on follow-up. 5. Several ovoid masses in the breast are indeterminate but may relate to intramammary lymph nodes. Mammographic correlation could be considered. The report will be called/faxed according to standard departmental protocol. Electronically signed by: Renaldo Sage M.D. 10/29/2017 7:32 AM Dictated Date/Time: 10/29/2017 7:16 AM
== END | disposition home or self-care (01) ==
LOC: C.CTS 06:42
PROVIDERS: ATTEND Surgery
DX: D49.2 Neoplasm of unspecified behavior of bone, soft tissue, and skin (principal)

== ENCOUNTER → 2017-11-04 | Outpatient (CLI) | payer BC, OTHER ==
--- NOTE | 2017-11-05 13:29 | MAMMOGRAPHY REPORT ---
BILATERAL DIGITAL SCREENING MAMMOGRAM TOMOSYNTHESIS WITH CAD: 11/04/2017 CLINICAL HISTORY: Asymptomatic. Personal history of breast cancer. TECHNIQUE: Breast tomosynthesis in addition to standard 2D mammography was performed. Current study was also evaluated with a Computer Aided Detection (CAD) system. COMPARISON: Comparison is made to exams dated: 10/31/2016 mammogram, 10/31/2015 mammogram, 10/29/2014 rl mogram, 10/28/2013 mammogram, 10/27/2012 mammogram, and 10/22/2011 mammogram - [facility]. BREAST COMPOSITION: There are scattered areas of fibroglandular density in both breasts. FINDINGS: There are benign bilateral rim and coarse calcifications. Expected architectural distorti on and surgical clips in the upper outer posterior right breast, at the site of prior lumpectomy. Be nign circumscribed round and oval masses in both breasts are also stable comparing to prior exams. No new suspicious mass, architectural distortion or cluster of suspicious microcalcifications is seen. IMPRESSION: ACR BI-RADS CATEGORY 2: BENIGN There is no mammographic evidence of malignancy. A 1 year screening mammogram is recommended. The pa tient will receive written notification of the results. Approximately 10% of breast cancers are not detected with mammography. A negative mammographic report should not delay biopsy if a clinically suggestive mass is present. Altagracia Carrion M.D. ay/:11/04/2017 15:16:09 Furniture Rental Consultant: Robert GUTIÉRREZ(Cassandra)(Mehran), [facility] letter sent: Normal 1/2 BI-RADS Code: ACR BI-RADS Category 2: Benign
== END | disposition home or self-care (01) ==
LOC: C.MAMM 08:07
PROVIDERS: ATTEND Obstetrics & Gynecology
DX: Z12.31 Encounter for screening mammogram for malignant neoplasm of breast (principal); Z85.3 Personal history of malignant neoplasm of breast

== ENCOUNTER → 2017-11-11 | Outpatient (CLI) | payer BC, OTHER ==
--- NOTE | 2017-11-11 12:04 | DIAGNOSTIC IMAGING REPORT ---
PET/CT SKULL-THIGH CLINICAL HISTORY: 77 years-old Female presenting with SINGLE PULM NODULE, history of right lower lobectomy, right breast lumpectomy, hysterectomy. TECHNIQUE: PET/CT was performed from the base of the skull through the proximal thighs following the intravenous administration of 12.75 mCi of F18-FDG. Blood glucose level 91 mg/dL. The injection was performed at 8:58 AM and imaging began at 10:[address] was performed for attenuation correction purposes and anatomic localization. COMPARISON: Chest CT from 10/29/2017. CT DOSE (mGy.cm): The estimated cumulative dose is 1156.30. FINDINGS: Head and neck: No FDG-avid mass in the visualized portion of the head or neck. Subcentimeter lymph node in the left supraclavicular fossa measures 5 mm in the short axis (series 2 image 53) (max SUV 1.66) Chest: 2 solid nodules in the left upper lobe (max SUV 1.56 in the larger nodule and 0.92 in the smaller nodule versus surrounding normal lung max SUV 0.47). Diminutive solid nodule along the left major fissure may be pleural or parenchymal/subpleural. Postsurgical changes of right lower lobectomy. Extensive right pleural thickening, likely scarring. Previously noted small solid nodularity within the right anterior mediastinal fat is not evident. Subcentimeter hypodense nodule in the right lobe of the thyroid is FDG avid (max SUV 3.59). Small nondescript focus of mild FDG avidity in the region of the left hilum likely represents a subcentimeter left hilar lymph node (max SUV 1.89 versus the mediastinum max SUV 2.05). Atherosclerosis of the aorta. Mild multichamber enlargement of the heart. Trace pericardial effusion. Right pleural thickening, unchanged. Central airways patent. Abdomen and pelvis: Normal physiologic distribution of radiotracer in the gastrointestinal and genitourinary tracts. No FDG avid lymphadenopathy or mass lesion. Hypodense lesion in the central liver indeterminate but likely hepatic cyst. Few additional hypodense lesions likely also hepatic cysts or hamartomas. These are photopenic. Focal nodular thickening of the left adrenal gland with an indeterminant density and mild FDG avidity. Right adrenal gland normal. Multiple hypodensities in the kidneys, many of which are parapelvic in location, likely cysts. These are photopenic. Nonobstructing 9 mm calculus at the lower pole the right kidney. No hydronephrosis. Under distended bladder. Surgically absent uterus. No adnexal masses. Diverticulosis of the sigmoid colon. Scattered diverticula noted elsewhere throughout the colon. The appendix is normal. No bowel obstruction. Atherosclerosis of aorta. Musculoskeletal: No FDG-avid or destructive osseous lesion. Degenerative changes of the spine. Postsurgical changes of the right ribs. IMPRESSION: 1. Mildly FDG avid solid left upper lobe nodules with mild FDG avidity in the left hilum possibly a subcentimeter lymph node. The degree of FDG avidity is not overwhelming for metastatic disease and less the primary disease is a carcinoma known to have poor FDG avidity. These are somewhat indeterminate by PET/CT but remains suspicious. 2. Minimally FDG avid subcentimeter lymph node in the left supraclavicular fossa. This is equivocal and does not strongly suggest metastatic disease. 3. FDG avid left thyroid nodule. It is unlikely that metastatic disease would spread to the thyroid, however, fine-needle aspiration could be considered as clinically indicated. 4. Postsurgical changes of right lower lobectomy with associated scarring. Electronically signed by: Renaldo Sage M.D. 11/11/2017 12:03 PM Dictated Date/Time: 11/11/2017 11:45 AM
== END | disposition home or self-care (01) ==
LOC: C.PET 08:27
PROVIDERS: ATTEND Surgery
DX: R91.1 Solitary pulmonary nodule (principal); D49.2 Neoplasm of unspecified behavior of bone, soft tissue, and skin

== ENCOUNTER 2017-11-15 05:39 | Day surgery (SDC) | payer BC, OTHER ==
[2017-11-07 08:25] VITALS: Ht 167.6 cm; Wt 64.7 kg
[2017-11-07 09:41] LABS: BASO % 0.2 %; BASO ABS # 0.01 K/uL (0-0.2); EOS ABS # 0.12 K/uL (0-0.5); HEMATOCRIT 46.1 % (37-47); HEMOGLOBIN 15.3 g/dL (12.0-16.0); IG# 0.01 K/uL (0.00-0.02); LYMPH % 17.4 %; LYMPH ABS # 1.07 K/uL (1.2-3.4); MEAN CELL VOLUME 88.1 fL (80-100); MEAN CORPUSCULAR HEMOGLOBIN 29.3 pg (25-34); MEAN CORPUSCULAR HGB CONC 33.2 g/dl (32-36); MEAN PLATELET VOLUME 9.4 fL (7.4-10.4); MONO % 6.2 %; MONO ABS # 0.38 K/uL (0.11-0.59); NEUT ABS # 4.55 K/uL (1.4-6.5); PLATELET COUNT 271 K/uL (130-400); RED CELL DISTRIBUTION WIDTH CV 13.7 % (11.5-14.5); RED CELL DISTRIBUTION WIDTH SD 44.4 fL (36.4-46.3); WHITE BLOOD COUNT 6.14 K/uL (4.8-10.8)
[2017-11-07 09:50] LABS: CALCIUM 9.2 mg/dl (8.5-10.1); CREATININE 0.84 mg/dl (0.60-1.20); POTASSIUM 3.6 mmol/L (3.5-5.1)
[~2017-11-15] VITALS: Ht 167.6 cm; Wt 64.7 kg
[2017-11-15] MEDS ORDERED: LACTATED RINGER'S 1000ML 1,000 ML IV SCH (06:00)
[2017-11-15 06:08] VITALS: BP 161/75; PULSE 74; TEMP 37; O2SAT 97
--- NOTE | 2017-11-15 06:14 | History & Physical Bridge Note ---
H&P Re-Evaluation Bridge Note: I have examined the patient, reviewed the History & Physical and in the interval since the performance of the History & Physical I have noted the following changes of clinical significance: No changes noted
[2017-11-15] MEDS ORDERED: LIDOCAINE HCL 2% 2 ML VIAL (20MG/ML) ONE (06:21)
[2017-11-15] MEDS ORDERED: PROPOFOL IV EMULSION 10 MG/ML 20 ML VIAL IV ONE (06:21)
[2017-11-15] MEDS ORDERED: ROCURONIUM BROMIDE 10 MG/ML 5 ML VIAL IV ONE (06:21)
[2017-11-15] MEDS ORDERED: FENTANYL CITRATE INJ 50 MCG/1 ML 2 ML VIAL ONE (06:21)
[2017-11-15] MEDS ORDERED: CLINDAMYCIN PHOS 150 MG/ML 2 ML VIAL ONE (06:26)
[2017-11-15] MEDS ORDERED: NURSING VERBAL MED ORDER ONE (06:30)
[2017-11-15] MEDS ORDERED: ONDANSETRON INJ 2 MG/ML 2 ML VIAL IV PRN (07:15)
[2017-11-15] MEDS ORDERED: ATROPINE SULFATE 0.1 MG/ML 5ML SYR IV PRN (07:15)
[2017-11-15] MEDS ORDERED: LABETALOL HCL IV 5 MG/ML 20ML IV PRN (07:15)
[2017-11-15] MEDS ORDERED: FENTANYL CITRATE INJ 50 MCG/1 ML 2 ML VIAL IV PRN (07:15)
--- NOTE | 2017-11-15 07:29 | Discharge Instructions ---
Discharge Instructions Date of Service Nov 15, 2017. Visit Reason for Visit: Solitary Fibrous Tumor, Lung Nodule Discharge Discharge Diagnosis / Problem: Solitary Fibrous Tumor, Lung Nodule Discharge Goals Goal(s): Learn about illness Activity Recommendations Activity Limitations: resume your previous activity (in 24 hours) Anesthesia . Post Anesthesia Instructions: If you have had General Anesthesia or IV Sedation: * Do not drive today. * Resume driving when surgeon permits. * Do not make important decisions or sign legal documents today. * Call surgeon for: 1. Temperature elevations greater than 101 degrees F. 2. Uncontrollable pain. 3. Excessive bleeding. 4. Persistent nausea and vomiting. 5. Medication intolerance (nausea, vomiting or rash). * For nausea and vomiting use only clear liquids such as: tea, soda, bouillon until nausea subsides, then gradually increase diet as tolerated. * If you have any concerns or questions, call your surgeon's office. If physician is unavailable and it is an emergency, call 911 or go to the nearest emergency room. . Instructions / Follow-Up Instructions / Follow-Up 1. You may cough up some blood. Call physician if excessive amount noted. 2. Keep your scheduled appointment with Dr. Park on November 25, 2017 @ 9: 45am. Diet Recommendations Recommended Home Diet: resume previous diet Pending Studies Studies pending at discharge: no Medical Emergencies . Who to Call and When: Medical Emergencies: If at any time you feel your situation is an emergency, please call 911 immediately. . Non-Emergent Contact Non-Emergency issues call your: Surgeon Call Non-Emergent contact if: you have a fever, your pain is not controlled . . "Provider Documentation" section prepared by Parker Alfonso. .
[2017-11-15] MEDS ORDERED: NEOSTIGMINE METHYLSULFATE 5 MG/5 ML SYR ONE (07:58)
[2017-11-15] MEDS ORDERED: GLYCOPYRROLATE INJ 0.2 MG/ML VIAL ONE (07:58)
[2017-11-15] MEDS ORDERED: ESMOLOL HCL 10 MG/ML 10 ML VIAL ONE (08:26)
--- NOTE | 2017-11-15 08:31 | [facility] Post Operative Brief Note ---
Immediate Operative Summary Operative Date Nov 15, 2017. Pre-Operative Diagnosis Left upper lobe nodules Post-Operative Diagnosis Same Procedure(s) Performed Navigational Bronchoscopy with Biopsy and placement of fudicial marker Surgeon Dr Park Telesales Team Leader Surgeon(s) Kirk Alfonso PA-C Estimated Blood Loss 5ml Findings Consistent with Post-Op Diagnosis Specimens All specimens handled by respiratory and lab Drains None Anesthesia Type General Complication(s) none Disposition Disposition: Recovery Room / PACU
--- NOTE | 2017-11-15 08:33 | DIAGNOSTIC IMAGING REPORT ---
CHEST 1 VIEW FRONTAL CLINICAL HISTORY: NAVIGATIONAL BRONCH TECHNIQUE: Image intensifier COMPARISON STUDY: None FINDINGS: Findings consistent with image intensifier guidance for navigational bronchoscopy. IMPRESSION: Navigational bronchoscopy The above report was generated using voice recognition software. It may contain grammatical, syntax or spelling errors. Electronically signed by: Anshul Robles M.D. 11/15/2017 8:32 AM Dictated Date/Time: 11/15/2017 8:32 AM
--- NOTE | 2017-11-15 08:51 | [facility] Operative Report ---
Operative Report Date of Service Nov 15, 2017. 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 Postoperative diagnosis: Same Procedure: Navigational bronchoscopy with biopsy left upper lobe lesions 2 Placement of fiducial marker left lower lobe nodule Surgeon: Dr. Park Anesthesia: General anesthesia with endotracheal intubation Indications for procedure and findings: This 77-year-old female found to have a huge solitary fibrous tumor which I did a right thoracotomy and a right lower lobectomy. Arm margins were negative for residual disease and her lymph nodes were negative. I have been following her for last 20 months or so and was concerned when her last surveillance CT scan showed 2 rounded nodules which were new in her left upper lobe. I discussed her in our cancer conference and elected to proceed with a navigational bronchoscopy. On 11/15/2017 the patient underwent uncomplicated navigational bronchoscopy. I did approximately 20 needle biopsy of these 2 lesions with forceps biopsies. It was difficult to access as they were not close to the airway. Our rapid on- site evaluation did not reveal any malignant cells. I left a fiducial marker at the larger of the 2 lesions which appear to be amenable to a thoracoscopic biopsy if necessary Procedure: Patient was brought to the operating room and laid supine position. General anesthesia was induced and endotracheal intubation was performed. After appropriate timeout had been called and prophylactic antibiotics given the fiberoptic bronchoscope was inserted through the endotracheal tube. The navigational probe from the [employer] navigational bronchoscopy system was inserted and the airways registered. We then went to her first target which was in the more proximal airway and more centrally located lesion. We got out to this and could identify it with our ultrasound however it was beside the airway and difficult to get to. I it appeared I had the needle in it and I was checking it in real-time with the radial ultrasound probe. It was difficult to get the needle into this lesion given the angle. I did this several times and we did not see any malignant cells on the rapid on-site evaluation. Attention was then turned towards the larger nodule which was a bit more peripheral just above the fissure. I could easily evaluate this with our ultrasound and it appeared we were in the lesion with the needle multiple times. I did at least 10 needle biopsies also used forceps biopsies with touch preps and we did not see any malignant cells. There was mild bleeding which was controlled with cold saline. The stopped promptly. I slowly withdrew the bronchoscope there was no further bleeding. The right lower lobe bronchial stump appeared to be fine. I saw no other endobronchial lesions. Tolerated well was extubated in the room. I attest to the content of the Intraoperative Record and any orders documented therein. Any exceptions are noted below.
--- NOTE | 2017-11-15 09:12 | DIAGNOSTIC IMAGING REPORT ---
CHEST ONE VIEW PORTABLE CLINICAL HISTORY: 77 years-old Female presenting with bronch. TECHNIQUE: Portable upright AP view of the chest was obtained. COMPARISON: 11/15/2017 at 7:38 AM as well as chest CT from 10/29/2017 and chest x-ray from 04/24/2016 and PET/CT from 11/11/2017. FINDINGS: Atherosclerosis of the aortic arch. Cardiac silhouette normal in size. Rightward mediastinal shift unchanged secondary to right lower lobectomy. Chronic changes of the pleura on the right. Opacity in the left midlung with a marker in place, possible small hematoma. Left pleural space clear. No pneumothorax.. Osseous structures normal. Upper abdomen normal. IMPRESSION: 1. Post procedure changes in the left midlung. 2. Chronic rightward mediastinal shift and pleural thickening status post right lower lobectomy and prior pleural mass resection. Electronically signed by: Renaldo Sage M.D. 11/15/2017 9:11 AM Dictated Date/Time: 11/15/2017 9:07 AM
--- NOTE | 2017-11-15 10:16 | DIAGNOSTIC IMAGING REPORT ---
CHEST ONE VIEW PORTABLE CLINICAL HISTORY: Post-op follow up COMPARISON STUDY: 11/15/2017 8:44 AM FINDINGS: Interval decrease in prominence of a nodular density left midlung. Biopsy marker is in position. Stable postoperative changes right hemithorax. Somewhat improved aeration right lung base IMPRESSION: Improving postoperative change with a decrease in size of a left midlung nodule. Improved aeration right base. The above report was generated using voice recognition software. It may contain grammatical, syntax or spelling errors. Electronically signed by: Anshul Robles M.D. 11/15/2017 10:15 AM Dictated Date/Time: 11/15/2017 10:13 AM
[2017-11-15 10:30] VITALS: BP 150/67; PULSE 69; TEMP 36.7; O2SAT 93
[2017-11-15 10:58] VITALS: BP 158/71; PULSE 69; TEMP 36.8; O2SAT 95
--- NOTE | 2017-11-15 11:34 | Anesthesiology Progress Note ---
Anesthesia Post Op Note Date & Time Nov 15, 2017 at 11:34 Vital Signs Pain Intensity: 0 Vital Signs Past 12 Hours Date Time Temp Pulse Resp B/P (MAP) Pulse Ox O2 Delivery O2 Flow Rate FiO2 11/15/17 10:58 36.8 69 20 158/71 95 Nasal Cannula 2 11/15/17 10:30 36.7 69 20 150/67 93 Room Air 11/15/17 10:21 150/76 11/15/17 10:20 90 17 11/15/17 10:20 89 17 99 11/15/17 10:16 169/72 11/15/17 10:15 77 20 11/15/17 10:15 76 20 97 11/15/17 10:15 77 20 11/15/17 10:11 154/83 11/15/17 10:10 82 15 94 11/15/17 10:10 80 15 11/15/17 10:06 163/69 11/15/17 10:05 77 16 11/15/17 10:05 78 16 99 11/15/17 10:04 69 17 99 11/15/17 10:04 71 17 11/15/17 10:01 136/79 11/15/17 09:59 79 11 11/15/17 09:59 79 11 99 11/15/17 09:56 149/61 11/15/17 09:54 90 13 97 11/15/17 09:54 88 13 11/15/17 09:51 173/88 11/15/17 09:49 81 15 11/15/17 09:49 81 15 98 11/15/17 09:47 144/61 18 09:44 81 15 94 11/15/17 09:44 81 15 18 09:43 79 17 95 18 09:43 79 17 1618 09:42 117/69 18 09:38 86 21 92 1618 09:38 87 21 1618 09:37 169/137 18 09:33 75 23 94 1618 09:33 72 23 1618 09:31 148/65 1618 09:28 66 17 1618 09:28 65 17 97 11/15/17 09:26 143/68 2/16/18 09:23 73 21 99 18 09:23 73 21 18 09:21 144/69 18 09:18 70 20 18 09:18 70 20 98 18 09:17 71 25 94 18 09:17 71 25 18 09:16 140/56 11/15/17 09:15 36.2 68 20 144/69 (86) 93 Nasal Cannula 2 11/15/17 09:12 81 11 11/15/17 09:12 81 11 90 11/15/17 09:11 147/53 11/15/17 09:07 94 19 11/15/17 09:07 91 19 157/101 90 11/15/17 09:05 93 17 146/75 (86) 94 Nasal Cannula 2 11/15/17 09:02 77 18 11/15/17 09:02 75 18 94 11/15/17 09:01 146/75 11/15/17 08:57 74 20 97 11/15/17 08:57 74 20 11/15/17 08:56 143/70 11/15/17 08:55 76 15 143/70 (104) 94 Nasal Cannula 2 11/15/17 08:52 77 14 11/15/17 08:52 77 14 91 11/15/17 08:51 136/80 11/15/17 08:47 79 23 98 11/15/17 08:47 81 23 18 08:46 133/68 11/15/17 08:45 82 13 133/68 (90) 98 Oxymask 10 11/15/17 08:42 82 22 118/61 100 18 08:42 82 22 18 08:38 140/70 18 08:38 36.4 85 16 140/70 (93) 100 Oxymask 10 11/15/17 06:08 37 74 18 161/75 (103) 97 Room Air Notes Mental Status: alert / awake / arousable, participated in evaluation Pt Amnestic to Procedure: Yes Nausea / Vomiting: adequately controlled Pain: adequately controlled Airway Patency, RR, SpO2: stable & adequate BP & HR: stable & adequate Hydration State: stable & adequate Anesthetic Complications: no major complications apparent
== END 2017-11-15 11:50 | disposition home or self-care (01) ==
LOC: C.ACU 05:39
PROVIDERS: ATTEND Surgery
DX: R91.1 Solitary pulmonary nodule (principal); D49.2 Neoplasm of unspecified behavior of bone, soft tissue, and skin; G47.33 Obstructive sleep apnea (adult) (pediatric); I10 Essential (primary) hypertension; K21.9 Gastro-esophageal reflux disease without esophagitis; Z88.0 Allergy status to penicillin; Z88.1 Allergy status to other antibiotic agents; Z90.710 Acquired absence of both cervix and uterus; Z98.890 Other specified postprocedural states

== ENCOUNTER 2017-12-04 09:48 | Inpatient (IN) | payer BC, OTHER ==
[2017-11-27 10:16] VITALS: BMI 23.0
[~2017-12-04] VITALS: Ht 167.6 cm; Wt 64.7 kg
[2017-12-04] VITALS (7 sets, daily range): BP systolic 124–164; BP diastolic 57–75; PULSE 66–84; TEMP 36.3–36.7; O2SAT 94–98; Ht 167.6 cm; Wt 64.7 kg
[~2017-12-04 09:48] MED LIST changes: +ATROPINE SULFATE 0.1 MG/ML 5ML SYR IV PRN; +EpHEDrine SULFATE INJ 50 MG/ML AMP IV PRN; +FENTANYL CITRATE INJ 50 MCG/1 ML 2 ML VIAL IV PRN; +LACTATED RINGER'S 1000ML 1,000 ML IV SCH; +ONDANSETRON INJ 2 MG/ML 2 ML VIAL IV PRN; +PROMETHAZINE HCL INJ 6.25 MG in SODIUM CHLORIDE 0.9% 50ML 50 ML IV PRN
[2017-12-04] MEDS ORDERED: MIDAZOLAM HCL 1 MG/ML 2ML VIAL ONE (09:55)
[2017-12-04] MEDS ORDERED: FENTANYL CITRATE INJ 50 MCG/1 ML 2 ML VIAL ONE ×3 (09:55→16:25)
[2017-12-04] MEDS ORDERED: ONDANSETRON INJ 2 MG/ML 2 ML VIAL ONE (11:30)
[2017-12-04] MEDS ORDERED: DEXAMETHASONE SOD INJ 4 MG/ML VIAL ONE (11:30)
[2017-12-04] MEDS ORDERED: PHENYLEPHRINE HCL INJ 10 MG/ML VIAL ONE (11:30)
[2017-12-04] MEDS ORDERED: LIDOCAINE HCL 2% 2 ML VIAL (20MG/ML) ONE (11:30)
[2017-12-04] MEDS ORDERED: EpHEDrine SULFATE 50MG/5ML SYR ONE (11:30)
[2017-12-04] MEDS ORDERED: PROPOFOL IV EMULSION 10 MG/ML 20 ML VIAL IV ONE (11:30)
[2017-12-04] MEDS ORDERED: GLYCOPYRROLATE INJ 0.2 MG/ML VIAL ONE (11:30)
[2017-12-04] MEDS ORDERED: NEOSTIGMINE METHYLSULFATE 5 MG/5 ML SYR ONE (11:30)
[2017-12-04] MEDS ORDERED: ROCURONIUM BROMIDE 10 MG/ML 5 ML VIAL IV ONE ×2 (11:30→15:11)
--- NOTE | 2017-12-04 12:38 | History & Physical Bridge Note ---
H&P Re-Evaluation Bridge Note: I have examined the patient, reviewed the History & Physical and in the interval since the performance of the History & Physical I have noted the following changes of clinical significance: Will likely proceed directly with a robot assisted left upper lobectomy. No changes noted
[2017-12-04] MEDS ORDERED: BUPIVACAINE LIPOSOME 1/3% 266 MG/20 ML VIAL INFIL ONE (12:52)
[2017-12-04] MEDS ORDERED: BUPIVACAINE 0.5 % 5 MG/1 ML MPF 30ML VIAL ONE (12:52)
[2017-12-04] MEDS ORDERED: SODIUM CHLORIDE 0.9% PF 50 ML VIAL ONE ×2 (12:52)
[2017-12-04] MEDS ORDERED: CLINDAMYCIN PHOS 150 MG/ML 2 ML VIAL ONE (14:10)
--- NOTE | 2017-12-04 15:40 | [facility] Post Operative Brief Note ---
Immediate Operative Summary Operative Date Dec 04, 2017. Pre-Operative Diagnosis Left lung solitary mass Post-Operative Diagnosis Nodules left upper lobe Procedure(s) Performed Robot Assisted Left Video Thoracoscopy with Left Upper Lobe Lobectomy with mediastinal lymphadenectomy Surgeon Dr Park Manager Flight Operations Surgeon(s) Kirk Alfonso PA-C Estimated Blood Loss 40 mL Findings Consistent with Post-Op Diagnosis Specimens Fresh Specimens A. Level 6 lymph node B. L12 lymph node C. L11 lymph node D. Level 5 lymph node E. L8 lymph node F. L10 lymph node G. Left Upper lobectomy Anesthesia Type General
[2017-12-04] MEDS ORDERED: MoRPHine SULFATE 2 MG/ML CARP IV PRN (15:45)
[2017-12-04] MEDS ORDERED: ONDANSETRON INJ 2 MG/ML 2 ML VIAL IV PRN (15:45)
[2017-12-04] MEDS ORDERED: KETOROLAC TROMETHAMINE 15 MG/ML VIAL IV. SCH (15:45)
--- NOTE | 2017-12-04 16:11 | DIAGNOSTIC IMAGING REPORT ---
CHEST ONE VIEW PORTABLE CLINICAL HISTORY: 77 years-old Female presenting with JIMMIE. TECHNIQUE: Portable upright AP view of the chest was obtained. COMPARISON: 11/15/2017. And chest CT from 10/29/2017. FINDINGS: The patient is MIRI rotated. Large bore left pleural catheter terminates in the mid left hemithorax. Atherosclerosis of aortic arch. Cardiac silhouette enlarged. Opacity in the right mid and lower lung increased from prior. Interval resection of the left mid lung nodule. No left pneumothorax. Osseous structures normal. Surgical clips project over the right axilla. IMPRESSION: 1. Allowing for patient rotation, expected postoperative findings status post left upper lobectomy with a large bore pleural catheter in place. No pneumothorax. 2. Right hemithorax opacity likely relates to chronic postsurgical changes of right lower lobectomy. Electronically signed by: Renaldo Sage M.D. 12/04/2017 4:10 PM Dictated Date/Time: 12/04/2017 4:07 PM
--- NOTE | 2017-12-04 16:18 | Anesthesiology Progress Note ---
Anesthesia Post Op Note Date & Time Dec 04, 2017 at 16:18 Vital Signs Pain Intensity: 0 Vital Signs Past 12 Hours Date Time Temp Pulse Resp B/P (MAP) Pulse Ox O2 Delivery O2 Flow Rate FiO2 12/04/17 15:57 36.3 79 16 154/79 95 Oxymask 10 12/04/17 10:30 36.5 84 20 161/70 97 Room Air Notes Mental Status: alert / awake / arousable, participated in evaluation Pt Amnestic to Procedure: Yes Nausea / Vomiting: adequately controlled Pain: adequately controlled Airway Patency, RR, SpO2: stable & adequate BP & HR: stable & adequate Hydration State: stable & adequate Anesthetic Complications: no major complications apparent
--- NOTE | 2017-12-04 16:43 | OPERATIVE REPORT ---
DATE OF OPERATION: 12/04/2017 PREOPERATIVE DIAGNOSES: 1. Pulmonary nodule x2, left upper lobe. 2. 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 POSTOPERATIVE DIAGNOSES: Same. PROCEDURE: Robot-assisted thoracoscopic left upper lobectomy and mediastinal lymph node dissection. SURGEON: Rashel Park MD CRANE HELPER: TRACEE Douglas (Mr. Alfonso was present for the case. He was at the bedside while I was at the console. He was present throughout its entirety and closed the skin incisions with hand). ANESTHESIA: General anesthesia endotracheal intubation using a double lumen tube. SPECIFICS OF PROCEDURE: Kalyn Driver is a very nice 77-year-old female that I met almost 2 years ago when she got a large mass in her left lower lung field. I did a thoracotomy and resected a tumor weighed over 5 pounds. This was a solitary fibrous tumor. We had cleaned resection margins and nodes were negative for any metastatic disease; however, there were some parts of the pathology which were concerning. I saw her back a year after surgery. She had no evidence of disease; however, on her last followup, which was more than 18 months after surgery, she was noted to have 2 well-described nodules in her left upper lobe. 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 She was presented at our multidisciplinary cancer conference. It was felt that a resection of her left upper lobe due to the 2 nodules, especially the more central one which precluded any type of wedge resection. When we talked about this, we elected to proceed with a lobectomy. DESCRIPTION OF PROCEDURE: On 12/04/2017, the patient underwent an uncomplicated robot-assisted thoracoscopic left upper lobectomy and lymph node dissection. She tolerated it well. She was extubated in the room with negligible blood loss and no air leak. The patient brought to the operating room and laid in supine position. General anesthesia induced and endotracheal intubation was performed with a double lumen tube. The patient was placed in the right lateral decubitus position and left chest prepped and draped in usual sterile fashion after the double lumen tube had been placed. Monitoring lines and tubes were placed. After appropriate timeout had been called and she had been prepped, draped and incision was made in about the eighth interspace anteriorly to the costal margin. Carbon dioxide was insufflated and a 5 mm camera was placed and the 5 mm port, it could be seen there were no adhesions. I then placed two 8 mm ports, a 12 mm port and a 15 mm port. I placed a 5 assistance port. We then dissected out the left upper lobe. The fissures were well formed. We went to the oblique fissure and dissected out the vessels. A stapler was fired across the lingual and the more distal branches as well as the apical anterior and more proximal branches. This freed up nicely and then we dissected out and fired an Endo-VAIBHAV stapler across the vein. This included the lingual vein. After the superior pulmonary vein had been divided, we then fired a stapler across the left upper lobe bronchus. This came out quite nicely. Before removing the specimen, we dissected out the level 5, level 6, level 10, 11 and 12 lymph nodes. None of these were very large. The patient really had no significant air leak. A chest tube was placed through the anterior 8 mm port and sutured in place with heavy silk suture. We then used an Endobag to remove the upper lobe to the gift shop assistant's port, had to be opened a bit. This port had been placed a couple of interspaces below at the camera port and was a bit more medial. After removing this, the Exparel was used to perform an intercostal block from the 2nd-11th rib. The incisions were then anesthetized. This was done with Exparel, which had been mixed with bupivacaine and normal saline. The incisions were also injected. We had no significant air leak from the chest tube. 0 Vicryl was used to close muscle layers of all ports and then 4-0 Vicryl was used in running subcuticular fashion to approximate wound edges. She tolerated it quite well, was extubated in the room with negligible blood loss. I attest to the content of the Intraoperative Record and any orders documented therein. Any exception s are noted below.
[2017-12-04] MEDS: KETOROLAC TROMETHAMINE 15 MG/ML VIAL IV. SCH (18:09)
[2017-12-04] MEDS: D5W AND 1/2NSS 1,000 ML IV SCH (19:56)
[2017-12-04] MEDS: ACETAMINOPHEN IV 1,000 MG in EMPTY BAG 0 ML IV SCH (19:59)
[2017-12-04] MEDS: DOCUSATE SODIUM 100 MG CAP PO SCH (20:47)
[2017-12-04] MEDS: SIMVASTATIN 20 MG TAB PO SCH (20:47)
[2017-12-04] MEDS: METOCLOPRAMIDE HCL INJ 5 MG/ML 2 ML VIAL IV. SCH (20:47)
[2017-12-04] MEDS: CEROVITE ADV FORMULA TAB PO SCH (20:47)
[2017-12-04] MEDS ORDERED: PNEUMOCOCCAL ADMINISTRATION CHARGE ONE (23:45)
[2017-12-04] MEDS ORDERED: PNEUMOCOCCAL POLYSACCHARIDES 25 MCG/0.5 ML VIAL/SYR IM. ONE (23:45)
[2017-12-05] MEDS: KETOROLAC TROMETHAMINE 15 MG/ML VIAL IV. SCH ×3 (02:25→20:20)
[2017-12-05] MEDS: ACETAMINOPHEN IV 1,000 MG in EMPTY BAG 0 ML IV SCH (02:35)
[2017-12-05 03:23] VITALS: BP 121/59; PULSE 71; TEMP 36.3; O2SAT 95
[2017-12-05] MEDS: METOCLOPRAMIDE HCL INJ 5 MG/ML 2 ML VIAL IV. SCH ×2 (06:06→12:36)
[2017-12-05] MEDS: D5W AND 1/2NSS 1,000 ML IV SCH (06:06)
[2017-12-05 06:52] LABS: BASO % 0.1 %; BASO ABS # 0.01 K/uL (0-0.2); EOS % 0.4 %; EOS ABS # 0.04 K/uL (0-0.5); HEMATOCRIT 39.4 % (37-47); HEMOGLOBIN 13.3 g/dL (12.0-16.0); IG# 0.02 K/uL (0.00-0.02); LYMPH % 9.5 %; LYMPH ABS # 0.93 K/uL (1.2-3.4); MEAN CELL VOLUME 88.5 fL (80-100); MEAN CORPUSCULAR HEMOGLOBIN 29.9 pg (25-34); MEAN CORPUSCULAR HGB CONC 33.8 g/dl (32-36); MONO % 8.9 %; MONO ABS # 0.88 K/uL (0.11-0.59); NEUT % 80.9 %; NEUT ABS # 7.96 K/uL (1.4-6.5); PLATELET COUNT 269 K/uL (130-400); RED CELL DISTRIBUTION WIDTH CV 14.2 % (11.5-14.5); RED CELL DISTRIBUTION WIDTH SD 46.3 fL (36.4-46.3); WHITE BLOOD COUNT 9.84 K/uL (4.8-10.8)
[2017-12-05 07:34] LABS: CALCIUM 8.2 mg/dl (8.5-10.1); CREATININE 1.06 mg/dl (0.60-1.20); POTASSIUM 3.6 mmol/L (3.5-5.1)
--- NOTE | 2017-12-05 07:46 | DIAGNOSTIC IMAGING REPORT ---
CHEST ONE VIEW PORTABLE CLINICAL HISTORY: Postoperative examination COMPARISON STUDY: 12/04/2017 FINDINGS: The cardiac and mediastinal contours remain stable. There is been no change the position of the left-sided chest tube. The left lung is clear. There is no pneumothorax. Chronic pleural-parenchymal right mid and lower lung zone opacities, remain stable and are likely postsurgical[ IMPRESSION: 1. Stable postsurgical changes within the right hemithorax 2. No change in the position of the left-sided chest tube. No evidence of pneumothorax. Electronically signed by: Paul Tolentino M.D. 12/05/2017 7:45 AM Dictated Date/Time: 12/05/2017 7:44 AM
--- NOTE | 2017-12-05 07:50 | Anesthesiology Progress Note ---
Anesthesia Post Op Note Date & Time Dec 05, 2017 at 07:50 Vital Signs Pain Intensity: 5.0 Vital Signs Past 12 Hours Date Time Temp Pulse Resp B/P (MAP) Pulse Ox O2 Delivery O2 Flow Rate FiO2 12/05/17 03:23 36.3 71 16 121/59 (79) 95 Room Air 12/04/17 23:56 Room Air 12/04/17 22:49 36.4 73 16 125/61 (82) 95 Room Air 12/04/17 20:30 36.6 80 18 124/57 (79) 94 Room Air Notes Mental Status: alert / awake / arousable, participated in evaluation Pt Amnestic to Procedure: Yes Nausea / Vomiting: adequately controlled Pain: adequately controlled Airway Patency, RR, SpO2: stable & adequate BP & HR: stable & adequate Hydration State: stable & adequate Anesthetic Complications: no major complications apparent
--- NOTE | 2017-12-05 08:03 | Surgery Progress Note ---
Subjective Date of Service: Dec 05, 2017. Pt. notes she is ambulating in hallway. Pain is well controlled. No SOB. Objective Vitals Date Time Temp Pulse Resp B/P (MAP) Pulse Ox O2 Delivery O2 Flow Rate FiO2 12/05/17 03:23 36.3 71 16 121/59 (79) 95 Room Air 12/04/17 23:56 Room Air 12/04/17 22:49 36.4 73 16 125/61 (82) 95 Room Air 12/04/17 20:30 36.6 80 18 124/57 (79) 94 Room Air 12/04/17 19:13 36.7 77 17 146/73 (97) 97 Nasal Cannula 2.0 12/04/17 18:14 36.7 71 18 163/75 (104) 98 Nasal Cannula 2.0 12/04/17 17:55 36.3 74 18 158/75 (102) 98 2.0 12/04/17 17:20 Nasal Cannula 2.0 12/04/17 17:15 36.4 66 18 164/71 (102) 98 Nasal Cannula 2.0 12/04/17 17:15 Nasal Cannula 2.0 12/04/17 16:55 36.9 73 16 131/59 97 Nasal Cannula 2 12/04/17 16:45 36.9 58 16 125/59 96 Nasal Cannula 2 12/04/17 16:35 70 16 158/68 97 Nasal Cannula 2 12/04/17 16:25 74 16 152/63 95 Nasal Cannula 2 12/04/17 16:15 72 16 154/76 100 Oxymask 10 12/04/17 16:05 79 16 147/79 100 Oxymask 10 12/04/17 15:57 36.3 79 16 154/79 95 Oxymask 10 12/04/17 10:30 36.5 84 20 161/70 97 Room Air Physical Exam General: + well developed, + well nourished, No distress CV: + RRR Pulmonary: + pertinent finding (slight decrease noted at bases), No accessory muscle use, No respiratory distress Extremities: No calf tenderness Neurologic: + alert & oriented x 3 Laboratory Item Value Date Time Sodium Level 137 mmol/L 12/05/17 0630 Potassium Level 3.6 mmol/L 12/05/17 0630 Blood Urea Nitrogen 17 mg/dl 3/8/18 0630 Creatinine 1.06 mg/dl 12/05/17629 Item Value Date Time White Blood Count 9.84 K/uL 12/05/17629 Hemoglobin 13.3 g/dL 12/05/17629 Hematocrit 39.4 % 12/05/17629 Platelet Count 269 K/uL 12/05/17629 Radiology CXR today shows no pneumothorax Drains / Tubes chest tube (no air leak ) Assessment & Plan 77 year old female s/p JIMMIE -chest tube to remain in place today; potentially d/c tomorrow if no air leak -continue pain control measures -encourage ambulation, coughing, dep breathing OTHER -lovenox for DVT prevention
[2017-12-05] MEDS: DOCUSATE SODIUM 100 MG CAP PO SCH ×2 (08:25→20:23)
[2017-12-05] MEDS: CEROVITE ADV FORMULA TAB PO SCH ×2 (08:25→20:23)
[2017-12-05] MEDS: ENOXAPARIN 40 MG/0.4 ML SYR SQ SCH (08:32)
[2017-12-05 09:22] VITALS: BP 117/58; PULSE 66; TEMP 37.2; O2SAT 98
[2017-12-05 11:30] VITALS: PULSE 62; O2SAT 96
[2017-12-05] MEDS: ACETAMINOPHEN 325 MG TAB PO SCH ×2 (12:35→20:19)
[2017-12-05 13:40] VITALS: BP 149/75; PULSE 65; TEMP 37; O2SAT 95
[2017-12-05] MEDS: OXYCODONE HCL IR 5 MG TAB (IMMEDIATE RELEASE) PO PRN (16:53)
[2017-12-05 16:56] VITALS: BP 167/72; PULSE 75; TEMP 37; O2SAT 94
[2017-12-05] MEDS: SIMVASTATIN 20 MG TAB PO SCH (21:03)
[2017-12-05 23:21] VITALS: BP 166/71; PULSE 63; TEMP 36.5; O2SAT 95
[2017-12-06] MEDS: ACETAMINOPHEN 325 MG TAB PO SCH ×3 (00:41→11:58)
[2017-12-06] MEDS: OXYCODONE HCL IR 5 MG TAB (IMMEDIATE RELEASE) PO PRN ×2 (00:47→13:22)
[2017-12-06] MEDS: KETOROLAC TROMETHAMINE 15 MG/ML VIAL IV. SCH ×2 (02:12→09:22)
--- NOTE | 2017-12-06 07:02 | DIAGNOSTIC IMAGING REPORT ---
CHEST ONE VIEW PORTABLE CLINICAL HISTORY: JIMMIE postoperative evaluation. Dyspnea. COMPARISON STUDY: 12/05/2017 FINDINGS: Left-sided chest tube is unchanged in position. No significant pneumothorax. Stable postoperative changes right mid and lower lung region. IMPRESSION: Left chest tube in good position. No postprocedural pneumothorax. Stable postoperative changes right lung. The above report was generated using voice recognition software. It may contain grammatical, syntax or spelling errors. Electronically signed by: Anshul Robles M.D. 12/06/2017 7:01 AM Dictated Date/Time: 12/06/2017 7:00 AM
[2017-12-06 07:51] VITALS: BP 146/80; PULSE 71; TEMP 36.9; O2SAT 94
[2017-12-06 08:00] VITALS: O2SAT 94
[2017-12-06] MEDS: ENOXAPARIN 40 MG/0.4 ML SYR SQ SCH (08:50)
[2017-12-06] MEDS: DOCUSATE SODIUM 100 MG CAP PO SCH (09:21)
[2017-12-06] MEDS: CEROVITE ADV FORMULA TAB PO SCH (09:21)
--- NOTE | 2017-12-06 09:28 | DIAGNOSTIC IMAGING REPORT ---
CHEST ONE VIEW PORTABLE CLINICAL HISTORY: tube removal dyspnea COMPARISON STUDY: 12/06/2017 6:46 AM FINDINGS: Interval removal of the patient's left-sided chest tube. Very small left lateral pneumothorax with a pleural separation of 3 mm. Otherwise unchanged exam. IMPRESSION: Removal of left-sided chest tube. Small left lateral pneumothorax with an maximum pleural separation of 3 mm. The above report was generated using voice recognition software. It may contain grammatical, syntax or spelling errors. Electronically signed by: Anshul Robles M.D. 12/06/2017 9:27 AM Dictated Date/Time: 12/06/2017 9:26 AM
--- NOTE | 2017-12-06 09:43 | Surgery Progress Note ---
Subjective Date of Service: Dec 06, 2017. Pt. notes no SOB and pain is well controlled. No N/V. She is ambulating in hallway. Objective Vitals Date Time Temp Pulse Resp B/P (MAP) Pulse Ox O2 Delivery O2 Flow Rate FiO2 12/06/17 08:00 94 Room Air 12/06/17 07:51 36.9 71 18 146/80 (102) 94 Room Air 12/06/17 07:40 Room Air 12/06/17 00:35 Room Air 12/05/17 23:21 36.5 63 16 166/71 (102) 95 CPAP 12/05/17 16:56 37.0 75 16 167/72 (103) 94 Room Air 12/05/17 16:12 Room Air 12/05/17 13:40 37.0 65 16 149/75 (99) 95 Room Air 12/05/17 11:30 62 96 Room Air Physical Exam General: + well developed, + well nourished, No distress Pulmonary: + lungs clear, No accessory muscle use, No respiratory distress Extremities: No calf tenderness Neurologic: + alert & oriented x 3 Radiology no pneumothorax noted; chest tube in position Drains / Tubes chest tube (no air leak ) Assessment & Plan 77 year old female s/p JIMMIE -d/c chest tube today: -chest tube removed and post pull CXR shows small pneumothorax -pt. revisited and no SOB; no crepitus noted in soft tissue; BS are present -will repeat CXR in 2 hours and if stable will d/c home -continue pain control measures -encourage ambulation, coughing, deep breathing OTHER -lovenox for DVT prevention
[2017-12-06] MEDS ORDERED: CLC100 PO (09:45)
[2017-12-06] MEDS ORDERED: ULT/50 PO (09:45)
[2017-12-06] MEDS ORDERED: ACET-1047 PO (09:45)
--- NOTE | 2017-12-06 09:48 | Discharge Instructions ---
Discharge Instructions Date of Service Dec 06, 2017. Admission Reason for Admission: Left Lung Nodule Discharge Discharge Diagnosis / Problem: Left Lung Nodule Discharge Goals Goal(s): Learn about illness Activity Recommendations Activity Limitations: as noted below Lifting Limitations: none 1. Do not drive until cleared to do so by Dr. Park. 2. Do not drive if taking ultram 3. You may remove dressings in 3 days and shower thereafter and clean incisions with soap and water. No tub baths. . Instructions / Follow-Up Instructions / Follow-Up 1. Office appointment with Dr. Park in 1 week. Office will call you with date and time of appointment. Go to hospital 1 hour before appointment to have a CXR taken. Current Hospital Diet Patient's current hospital diet: Regular Diet Discharge Diet Recommended Diet: Regular Diet Procedures Procedures Performed: Robot Assisted Left Video Thoracoscopy with Left Upper Lobe Lobectomy with mediastinal lymphadenectomy Pending Studies Studies pending at discharge: no Medical Emergencies . Who to Call and When: Medical Emergencies: If at any time you feel your situation is an emergency, please call 911 immediately. . Non-Emergent Contact Non-Emergency issues call your: Surgeon Call Non-Emergent contact if: you have a fever, your pain is not controlled, wound has increased drainage . "Provider Documentation" section prepared by Parker Alfonso. .
--- NOTE | 2017-12-06 11:34 | DIAGNOSTIC IMAGING REPORT ---
CHEST ONE VIEW PORTABLE CLINICAL HISTORY: tube removal pneumothorax COMPARISON STUDY: 12/06/2017 9:09 AM FINDINGS: No evidence for pneumothorax at the current time. Left lung is clear. Chronic changes right mid and lower lung are unaltered. IMPRESSION: No evidence pneumothorax. The above report was generated using voice recognition software. It may contain grammatical, syntax or spelling errors. Electronically signed by: Anshul Robles M.D. 12/06/2017 11:33 AM Dictated Date/Time: 12/06/2017 11:32 AM
--- NOTE | 2017-12-06 11:56 | Discharge Summary ---
Discharge Summary Date of Service Dec 06, 2017. Discharge Summary Admission Date: Dec 04, 2017 at 15:48 Discharge Date: Dec 06, 2017 Discharge Disposition: Home Principal Diagnosis: Left Lung Nodules Procedures: Robotic Left VATS with JIMMIE and Lymphadenectomy Consultations: none Medication Reconciliation New Medications: Acetaminophen (Mapap) 325 Mg Tab 650 MG PO Q6H PRN for Pain for 30 Days, 0 Refills Tramadol Hcl (Ultram) 50 Mg Tab 50 MG PO Q4H PRN for Pain, #18 TAB PRN PAIN Docusate Sodium (Docusate Sodium) 100 Mg Cap 100 MG PO BID for 30 Days, #60 CAP 0 Refills Continued Medications: Indapamide (Indapamide) 1.25 Mg Tab 1.25 MG PO QAM Naproxen Sodium (Aleve) 220 Mg Tab 220 MG PO DAILY PRN for Pain, TAB Ocuvite Preservision (Ocuvite Preservision) 1 Tab Tab 1 TAB PO BID, TAB Simvastatin (Zocor) 20 Mg Tab 20 MG PO HS, TAB Discharge Exam Review of Systems: Constitutional: No fever, No chills Respiratory: No cough, No shortness of breath Cardiovascular: No chest pain Abdomen: No pain, No nausea Physical Exam: General Appearance: WD/WN, no apparent distress Respiratory/Chest: lungs clear, normal breath sounds, no respiratory distress, no accessory muscle use Cardiovascular: regular rate, rhythm Abdomen / GI: soft Extremities: no calf tenderness Neurologic/Psychiatric: alert, oriented x 3 Hospital Course 77 year old female s/p JIMMIE -concern fort solitary fibrous tumor: -final path pending at at time of d/c -chest tube managed in appropriate fashion and removed on POD #2 -initial post pull CXR showed small pneumothorax -CXR repeated approx. 2.5 hours later and showed no pneumothorax -pain control measures implemented -ambulation, coughing, deep breathing encouraged throughout hospitalization -post-op course was uneventful OTHER -lovenox utilized for DVT prevention Total Time Spent: Greater than 30 minutes This includes examination of the patient, discharge planning, medication reconciliation, and communication with other providers. Discharge Instructions Please refer to the electronic Patient Visit Report (Discharge Instructions) for additional information. Follow-Up 1. Dr. Park in 1 week with CXR. Additional Copies To Shamar Espinosa M.D.
[2017-12-06 13:10] VITALS: BP 146/80; PULSE 71; TEMP 36.9; O2SAT 94
== END 2017-12-06 13:20 | disposition home or self-care (01) | DRG 165 ==
LOC: C.ACU 09:48 → C.MSN 15:48 → ENRESERV 16:20
PROVIDERS: ADMIT Surgery; ATTEND Surgery
PROC: 0BTG4ZZ Resection of Left Upper Lung Lobe, Percutaneous Endoscopic Approach (ICD-10-PCS; principal; 2017-12-04 12:00)
DX: R91.8 Other nonspecific abnormal finding of lung field (principal)

== ENCOUNTER → 2017-12-12 | Outpatient (CLI) | payer BC, OTHER ==
[~2017-12-12] MED LIST changes: +ACET-1047 PO; -ATROPINE SULFATE 0.1 MG/ML 5ML SYR IV PRN; +CLC100 PO; -EpHEDrine SULFATE INJ 50 MG/ML AMP IV PRN; -FENTANYL CITRATE INJ 50 MCG/1 ML 2 ML VIAL IV PRN; -LACTATED RINGER'S 1000ML 1,000 ML IV SCH; -ONDANSETRON INJ 2 MG/ML 2 ML VIAL IV PRN; -PROMETHAZINE HCL INJ 6.25 MG in SODIUM CHLORIDE 0.9% 50ML 50 ML IV PRN; +ULT/50 PO
--- NOTE | 2017-12-12 10:00 | DIAGNOSTIC IMAGING REPORT ---
CHEST 2 VIEWS ROUTINE CLINICAL HISTORY: 77 years-old Female presenting with R91.1 Lung [id number]. TECHNIQUE: PA and lateral views of the chest were obtained. COMPARISON: Chest CT from 10/29/2017 and chest x-ray from 12/06/2017. FINDINGS: Chronic rightward deviation of the cardiomediastinal silhouette. An air-fluid level is noted in the left mid hemithorax, which is new from prior. Chronic pleural changes on the right. Lungs grossly clear. Osseous structures normal. Surgical clips project over the right axilla. IMPRESSION: 1. Interval development of an air-fluid level ejecting over the left hemithorax. This either represents a loculated hydropneumothorax or less likely intraparenchymal air-fluid level within a cavity. Further evaluation with chest CT recommended. The report will be called/faxed according to standard departmental protocol. Electronically signed by: Renaldo Sage M.D. 12/12/2017 9:59 AM Dictated Date/Time: 12/12/2017 9:56 AM
== END | disposition home or self-care (01) ==
LOC: C.RAD1850 09:48
PROVIDERS: ATTEND Surgery
DX: R91.1 Solitary pulmonary nodule (principal)

== ENCOUNTER → 2017-12-31 | Outpatient (CLI) | payer BC, OTHER ==
--- NOTE | 2017-12-31 09:51 | DIAGNOSTIC IMAGING REPORT ---
CHEST 2 VIEWS ROUTINE CLINICAL HISTORY: D49.2 Solitary fibrous tumor COMPARISON STUDY: 12/12/2017 FINDINGS: The heart is enlarged. The previously described hydropneumothorax has resolved. There are postsurgical changes present.. There is blunting of the right costophrenic angle suggesting a trace effusion. There is no lobar consolidation[ IMPRESSION: 1. Postsurgical changes 2. Small right pleural effusion/pleural thickening 3. Interval resolution of the hydropneumothorax 4. No evidence of acute parenchymal consolidation Electronically signed by: Paul Tolentino M.D. 12/31/2017 9:50 AM Dictated Date/Time: 12/31/2017 9:43 AM
== END | disposition home or self-care (01) ==
LOC: C.RAD1850 08:56
PROVIDERS: ATTEND Surgery
DX: D49.2 Neoplasm of unspecified behavior of bone, soft tissue, and skin (principal)

== ENCOUNTER → 2018-01-06 | Outpatient (CLI) | payer BC, OTHER ==
[2018-01-06 09:53] LABS: HEMOGLOBIN A1C 5.6 % (4.5-5.6)
== END | disposition home or self-care (01) ==
LOC: C.LAB1850 07:00
PROVIDERS: ATTEND Internal Medicine
DX: E78.00 Pure hypercholesterolemia, unspecified (principal)

== ENCOUNTER 2019-10-05 10:53 | Inpatient (IN) ==
[2019-10-05] MEDS ORDERED: SODIUM CHLORIDE 0.9% 1000ML 1,000 ML IV ONE (11:27)
[2019-10-05 11:50] LABS: Hematocrit (blood only) 21.7 % (37-47); Hemoglobin 6.6 g/dL (12.0-16.0); Mean Corpuscular Hemoglobin 30.6 pg (25-34); Mean Corpuscular Hgb Conc 30.4 g/dL (32-36); Mean Corpuscular Volume 100.5 fL (80-100); Platelet Count 17 K/uL (130-400); Red Blood Count 2.16 M/uL (4.2-5.4); White Blood Count 3.09 K/uL (4.8-10.8)
[2019-10-05] MEDS ORDERED: SODIUM CHLORIDE 0.9% 250 ML IV PRN (12:06)
[2019-10-05 12:12] LABS: Eosinophils # (auto) 0.02 K/uL (0-0.5); Eosinophils % (auto) 0.6 %; Immature Granulocytes # (auto) 0.02 K/uL (0.00-0.02); Immature Granulocytes % (auto) 0.6 %; Lymphocytes # (auto) 1.41 K/uL (1.2-3.4); Lymphocytes % (auto) 45.6 %; Monocytes # (auto) 0.34 K/uL (0.11-0.59); Neutrophils % (auto) 42.2 %; Rouleaux 2+
--- NOTE | 2019-10-05 12:12 | CT Scan Report ---
CT head/brain wo con CLINICAL HISTORY: syncope, metastatic disease SEIZURE COMPARISON STUDY: August 2011 TECHNIQUE: Axial CT of the brain is performed from the vertex to the skull base. IV contrast was not administered for this examination. A dose lowering technique was utilized adhering to the principles of ALARA. CT DOSE: 537.48 mGy.cm FINDINGS: No intra or extra-axial mass lesions are visualized. There is no CT evidence of acute cortical infarc tion. There is no evidence of midline shift. There is no acute hemorrhage. No calvarial fractures ar e visualized. There are patchy white matter hypodensities likely on a small vessel basis. There is no evidence of pathologic ventricular dilatation. There are bilateral sphenoid sinus air-fluid levels. There is opacification of several ethmoid air ce lls. IMPRESSION: 1. Inflammatory changes within the paranasal sinuses with sphenoid sinus air-fluid levels 2. Otherwise no acute intracranial findings. ACT 112: Negative or not required by law. Electronically signed by: Paul Tolentino M.D. 10/05/2019 12:11 PM
--- NOTE | 2019-10-05 12:41 | XRay Report ---
XR chest 1V portable HISTORY: Atypical Chest Pain COMPARISON: Chest 05/19/2019. Chest x-ray 12/06/2017. FINDINGS: No pneumothorax. No pleural effusions. The heart remains mildly enlarged. Hazy appearance t o the right mid to lower lung zone remains unchanged and favors a combination of postoperative change s and the patient's known metastatic disease. There are surgical clips within the right axilla. No ev idence for pulmonary edema. No new focal lung consolidations to suggest pneumonia. No evidence for pu lmonary edema. IMPRESSION: No significant change compared to the prior study. No acute process. Right mid to lower lung zone den sity persists and favors a combination of postoperative changes and the patient's known metastatic di sease. ACT 112: Negative or not required by law. Electronically signed by: Ovidio Albright M.D. 10/05/2019 12:39 PM
[2019-10-05 12:44] LABS: Influenza A virus by PCR Neg for Influ A (Neg); Influenza B virus by PCR Neg for Influ B (Neg)
[2019-10-05 14:51] LABS: Appearance Urine Clear (Clear); Bilirubin Urine Negative (Negative); Blood Urine Negative (Negative); Color Urine Yellow; Glucose Urine UA Negative (Negative); Ketones Urine Negative (Negative); Leukocyte Esterase Urine Negative (Negative); Nitrite Urine Negative (Negative); Protein Urine Negative (Negative); Specific Gravity Urine 1.011 (1.000-1.030); Urobilinogen Urine Negative (Negative); pH Urine 5.5 (4.5-7.5)
--- NOTE | 2019-10-05 15:16 | History & Physical Report ---
Date of Service October 05, 2019 Assessment & Plan (1) TIA (transient ischemic attack): Admits to PCU on telemetry. Started stroke pathway without TPA. TTE pending MRI brain without contrast and ultrasound of carotids pending CT of the head without contrast negative for stroke. DVT prophylaxis SCDs and teds Physical and Occupational Therapy Referred to swallow study Consider consulting neurology if MRI brain positive for stroke. 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 Started 2 units of blood and platelets in the emergency room. CT abdomen pelvis pending to rule out possible GI bleed. Fecal occult blood of every stool pending. Follow-up closely CBC. Consult oncology. Present on Admission?: Yes (3) Pancytopenia: Neutropenic isolation. As the above Present on Admission?: Yes (4) Gastroesophageal reflux disease: Continue home medicine pantoprazole 40 mg p.o. every morning. Present on Admission?: Yes (5) Hyperlipemia: Fasting lipid panel pending. Continue simvastatin 20 mg p.o. 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 No home medication listed. Present on Admission?: Yes (7) Hypertension: Stable. Chronic issue. Patient is not any blood pressure medicine. Continue home medicine potassium chloride 40 M EQ p.o. twice daily. Continue monitoring every 4 hours Present on Admission?: Yes (8) Malignant solitary fibrous neoplasm: Discussed with Dr. keya Ridley. Placed referral for patient to be seen by agricultural appraiser oncologist. Primary agricultural appraiser oncologist is Dr. Brizuela. Severe anemia and pancytopenia is most likely due to metastatic malignant solitary fibrous neoplasm. Follow-up recommendations. Present on Admission?: Yes (9) Obstructive sleep apnea syndrome in adult: Offered CPAP at night. Present on Admission?: Yes (10) Hyperglycemia: Lab value was not reportable. Repeat chemistry. A1c pending Present on Admission?: Yes History of Present Illness Chief Complaint: Transient ischemic attack-like symptoms, severe pancytopenia, malignant solitary fibrosis neoplasm Primary Care Provider: Shamar Espinosa MD Patient is a 78 years old female with past medical history of hypertension, hyperlipidemia, history of breast cancer, obstructive sleep apnea, osteoarthritis, malignant metastatic solitary fibrous neoplasm who was brought from the cancer center after nurse who was installing a chemotherapy to patient noted that patient was not responding to her questions and was mentally absent and had face droop on the left. She called RT and patient was examined by , agricultural appraiser oncologist who noted that at the time when he saw the patient face droop resolved as well as her near syncopal episode. Patient did not lose consciousness or she fell on the floor. Patient did not have a seizure there the history provided by the nurse nor by the agricultural appraiser oncologist. Patient is now resting comfortably in the bed. She usually sees Dr. Brizuela her agricultural appraiser oncologist for malignant solitary fibrosis neoplasm. Patient lazara es fever, chills, chest pain, shortness of breath, abdominal pain, frequency, urgency. Labs are reviewed and it was noted that patient is severely pancytopenic with WBCs of 3.09, hemoglobin 6.6, hematocrit 21.7, platelets of 17. Chemistry was not reported, order replaced. Urine negative. Negative for influenza A&B. CT head: Inflammatory changes within the paranasal sinuses with sphenoid sinus air-fluid levels. Otherwise no acute intracranial findings. Chest x-ray: No pneumothorax, no pleural effusion, the heart remains mildly enlarged. Hazy appearance to the right mid to lower lung zone remains unchanged and favors a combination of postoperative changes and the patient's known metastatic disease. No evidence of pulmonary edema. No new focal lung consolidation to suggest pneumonia. No significant change compared to the prior study. No acute process. Right mid to lower lung zone density persistent and favors a combination of postoperative changes and the patient known metastatic disease. Decision was made to admit patient to PCU on telemetry for severe pancytopenia, possibly transient ischemic attack versus stroke and or other treatments and managements. Allergies Allergy/AdvReac Type Severity Reaction Status Date / Time Penicillins Allergy Mild UNKNOWN Verified 10/05/19 11:30 Cephalosporins Allergy Unknown KEFLEX PER Verified 10/05/19 11:30 UNCODED ALLERGIES-UNKNOWN TO PT Home Medications Home Medications Medication Instructions Recorded Confirmed Type indapamide 1.25 mg PO QAM 10/10/18 10/05/19 History simvastatin 20 mg PO HS 10/10/18 10/05/19 History vit C,O-Is-vqson-lutein-zeaxan 1 tab PO AMHS 10/10/18 10/05/19 History [PreserVision AREDS-2] levothyroxine 25 mcg PO QAM 10/30/18 10/05/19 History magnesium oxide [MagOx] 400 mg PO DAILY #5 tab 10/30/18 10/05/19 Rx pantoprazole 40 mg PO QAM 10/30/18 10/05/19 History sod phos di, mono-K phos mono 250 mg PO BID 10/30/18 10/05/19 History [Phospha 250 Neutral] morphine 30 mg PO BID 10/05/19 10/05/19 History potassium chloride 40 meq PO BID 10/05/19 10/05/19 History Past Med/Surg History Medical History Acute anterior epistaxis (Inactive) Anemia (Inactive) Bone cancer (Chronic) Breast cancer (Acute) Chronic sinusitis (Acute) Diverticulosis (Acute) Gastroesophageal reflux disease (Acute) Hemorrhoids (Chronic) Hypercholesterolemia (Acute) Hyperglycemia (Acute) Hyperlipemia (Chronic) Hypertension (Chronic) 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 Tis apical N0M0 stage 0 Status post completion of radiation therapy 01/16/2006 received 6120 cGy Status post left breast biopsy 01/03/2011 showing adenosis with associated microcalcifications, fibrocystic changes with associated ductal hyperplasia" Malignant solitary fibrous neoplasm (Chronic) Metastatic carcinoma (Inactive) Obstructive sleep apnea syndrome in adult (Acute) Osteoarthritis (Acute) 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 (Chronic) Surgical History H/O: hysterectomy (Chronic) Family History Other Family history non-contributory Social History Preferred Language: Turkmen Beliefs That Will Affect Care: None marital status: / Current Living Situation: Family current occupational status: retired Feels Safe at Home: Yes Smoking Status: Never smoker Review of Systems Review of Systems: All systems reviewed & are unremarkable except as noted in HPI & below Physical Exam Constitutional: WD/WN, vitals as above + cachectic Eyes: PERRL, conjunctivae normal, anicteric sclerae ENMT: external ear and nose normal, oropharynx normal Neck: trachea midline, no thyromegaly Respiratory: normal respiratory effort Auscultation: + crackles and + wheezes Cardiovascular: Heart Sounds: normal S1, normal S2 and + murmur Vessels: dorsalis pedis pulses present Musculoskeletal: no cyanosis or clubbing, extremities motor strength 5/5 Skin: no rashes, warm and dry Neurologic: patellar DTR's 2+ bilat, sensation intact Psychiatric: A+Ox3, euthymic affect Lymphatic: no cervical or axillary lymphadenopathy Results & Data Vital Signs (Past 12 Hours) Vital Signs Temp Pulse Resp BP Pulse Ox 10/05/19 14:15 83 23 157/88 H 96 10/05/19 14:10 81 22 96 10/05/19 14:01 77 20 95 10/05/19 14:00 79 19 146/86 H 92 10/05/19 13:50 83 18 95 10/05/19 13:45 37.1 C 80 19 146/84 H 96 10/05/19 13:40 80 18 97 10/05/19 13:31 78 19 98 10/05/19 13:30 76 17 137/82 97 10/05/19 13:26 86 16 145/85 H 98 10/05/19 13:01 80 18 99 10/05/19 13:00 78 19 140/85 96 10/05/19 12:58 78 19 139/85 10/05/19 12:51 36.4 C L 84 15 132/83 99 10/05/19 12:50 78 15 97 10/05/19 12:46 78 16 132/83 10/05/19 11:44 86 94 10/05/19 11:05 36.4 C L 87 16 115/73 94 Code Status & VTE Plan Code Status Full code VTE Prophylaxis Plan VTE Prophylaxis will be ordered: No PG Care Time/CCT Total # of Minutes Spent Total Time Spent with Patient: Total time spent is greater than 50% in coordination of care (as documented) at patient's floor/unit and/or counseling patient: (1) Anemia Anemia type: unspecified type Qualified Code(s): D64.9 - Anemia, unspecified
--- NOTE | 2019-10-05 15:35 | Electrocardiogram Report ---
Test Reason : Blood Pressure : / mmHG Vent. Rate : 089 BPM Atrial Rate : 089 BPM P-R Int : 134 ms QRS Dur : 072 ms QT Int : 366 ms P-R-T Axes : 059 055 064 degrees QTc Int : 445 ms Normal sinus rhythm Possible Left atrial enlargement Borderline ECG When compared with ECG of 30-OCT-2018 18:53, Nonspecific T wave abnormality no longer evident in Inferior leads Nonspecific T wave abnormality no longer evident in Lateral leads QT has lengthened Confirmed by Johann Ahumada ([id number]) on 10/05/2019 3:35:30 PM Referred By: ED Confirmed By:Johann Ahumada
[2019-10-05] MEDS ORDERED: PHARMACIST DISCHARGE MED REC CONSULT PRN (16:37)
[2019-10-05] MEDS ORDERED: ONDANSETRON INJ 2 MG/ML 2 ML VIAL IV PRN (16:37)
[2019-10-05] MEDS ORDERED: ACETAMINOPHEN 325 MG TAB PO PRN (16:37)
[2019-10-05] MEDS ORDERED: ALUMINUM/MAGNESIUM SUSP 30 ML UDC PO PRN (16:37)
[2019-10-05] MEDS ORDERED: POLYETHYLENE (MIRALAX) 17 GM PACK PO PRN (16:37)
[2019-10-05] MEDS ORDERED: MAGNESIUM HYDROXIDE SUSP 30 ML UDC PO PRN (16:37)
[2019-10-05] MEDS ORDERED: MoRPHine SULFATE CR 15 MG TABCR PO ONE ×2 (17:03→17:20)
[2019-10-05 17:15] LABS: Nucleated RBC # (auto) 0.02 K/uL (0-0); Nucleated RBC % (auto) 0.9 %
[2019-10-05 17:33] LABS: Hematocrit (blood only) 23.7 % (37-47); Hemoglobin 7.7 g/dL (12.0-16.0); Mean Corpuscular Hemoglobin 32.1 pg (25-34); Mean Corpuscular Hgb Conc 32.5 g/dL (32-36); Mean Corpuscular Volume 98.8 fL (80-100); Mean Platelet Volume 8.4 fL (7.4-10.4); Platelet Count 40 K/uL (130-400); RDW Coefficient of Variation 21.7 % (11.5-14.5); RDW Standard Deviation 75.5 fL (36.4-46.3); White Blood Count 2.31 K/uL (4.8-10.8)
[2019-10-05 18:08] LABS: ANC (manual) 1.04 K/uL (1.4-6.5); Monocytes # (manual) 0.07 K/uL (0.11-0.59); Neutrophils # (manual) 1.04 K/uL (1.4-6.5)
--- NOTE | 2019-10-05 18:59 | Emergency Department Note ---
Entered by Shavon Cali acting as a scribe for Dusty Elias MD History of Present Illness General Chief complaint: Seizure Time Seen by Provider: 10/05/19 11:20 Source: patient and family Mode of arrival: EMS History of Present Illness Onset (ago): hour(s) less than 1 Location: head (syncope) Pain Consistency: + other (episode) Quality: + other (syncope) Exacerbated By: + movement Associated symptoms: + nausea/vomiting (Positive nausea. Negative vomiting. ), + shortness of breath and + syncope; no other (fall) Treatments prior to arrival: none The patient is a 78 year old female presenting to the Emergency Department via EMS complaining of an episode of syncope starting less than an hour [employer]. The patients son reports that the patient was in the [facility] cancer pavilion getting her blood drawn and lost consciousness. He states that the patient was short of breath before she lost consciousness and wasnt able to move. He explains that the patient was shaking while she was unconscious. He notes that once the patient regained consciousness she was acting like her normal self but was tired. He adds that the patient has been nauseous for the past few days and that she has been experiencing epistaxis. The patients son reports that the patient has never experienced these symptoms before. He states that the patient has metastatic cancer and has been following with Dr. Brizuela oncologist. He explains that the patient has been receiving treatment since September 2018. He notes that the patient didnt receive her normal treatment [employer]. He adds that the patient received no treatments [employer]. The patient denies that she fell [employer]. Home Medications Home Medications Medication Instructions Recorded Confirmed Type indapamide 1.25 mg PO QAM 10/10/18 10/05/19 History simvastatin 20 mg PO HS 10/10/18 10/05/19 History vit C,M-Ou-xoavh-lutein-zeaxan 1 tab PO AMHS 10/10/18 10/05/19 History [PreserVision AREDS-2] levothyroxine 25 mcg PO QAM 10/30/18 10/05/19 History magnesium oxide [MagOx] 400 mg PO DAILY #5 tab 10/30/18 10/05/19 Rx pantoprazole 40 mg PO QAM 10/30/18 10/05/19 History sod phos di, mono-K phos mono 250 mg PO BID 10/30/18 10/05/19 History [Phospha 250 Neutral] morphine 30 mg PO BID 10/05/19 10/05/19 History potassium chloride 40 meq PO BID 10/05/19 10/05/19 History Allergies Allergy/AdvReac Type Severity Reaction Status Date / Time Penicillins Allergy Mild UNKNOWN Verified 10/05/19 11:30 Cephalosporins Allergy Unknown KEFLEX PER Verified 10/05/19 11:30 UNCODED ALLERGIES-UNKNOWN TO PT Past Med/Surg History Medical History Acute anterior epistaxis (Inactive) Anemia (Inactive) Bone cancer (Chronic) Breast cancer (Acute) Chronic sinusitis (Acute) Diverticulosis (Acute) Gastroesophageal reflux disease (Acute) Hemorrhoids (Chronic) Hypercholesterolemia (Acute) Hyperglycemia (Acute) Hyperlipemia (Chronic) Hypertension (Chronic) 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 Tis apical N0M0 stage 0 Status post completion of radiation therapy 01/16/2006 received 6120 cGy Status post left breast biopsy 01/03/2011 showing adenosis with associated microcalcifications, fibrocystic changes with associated ductal hyperplasia" Malignant solitary fibrous neoplasm (Chronic) Metastatic carcinoma (Inactive) Obstructive sleep apnea syndrome in adult (Acute) Osteoarthritis (Acute) 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 (Chronic) Surgical History H/O: hysterectomy (Chronic) Family History Other Family history non-contributory Social History Preferred Language: German Communication Ability: Effective Beliefs That Will Affect Care: Rastafarian marital status: / Current Living Situation: Alone current occupational status: retired Feels Safe at Home: Yes Smoking Status: Never smoker Hx Alcohol Use: No Hx Substance Use: No Review of Systems See HPI for pertinent positives & negatives. and A total of 10 systems reviewed and were otherwise negative Physical Exam Vital Signs Vital Signs - 24 hr 10/05/19 11:05 10/05/19 11:44 10/05/19 12:46 Temperature 36.4 C L Temperature Source Oral Pulse Rate 87 86 78 Pulse Rate from SpO2 Sensor Respiratory Rate 16 16 Respiratory Effort / Characteristics Non-Labored Respiratory Depth Normal Blood Pressure 115/73 132/83 Blood Pressure Mean 87 91 Blood Pressure Position Pulse Oximetry 94 94 Oxygen Delivery Method Room Air Room Air Sepsis Recent Fever Within 48 Hours No Sepsis Action Taken by Nursing No Action Required 10/05/19 12:50 10/05/19 12:51 10/05/19 12:58 Temperature 36.4 C L Temperature Source Oral Pulse Rate 78 84 78 Pulse Rate from SpO2 Sensor 77 Respiratory Rate 15 15 19 Respiratory Effort / Characteristics Respiratory Depth Blood Pressure 132/83 139/85 Blood Pressure Mean 99 96 Blood Pressure Position Pulse Oximetry 97 99 Oxygen Delivery Method Sepsis Recent Fever Within 48 Hours Sepsis Action Taken by Nursing 10/05/19 13:00 10/05/19 13:01 10/05/19 13:26 Temperature Temperature Source Pulse Rate 78 80 86 Pulse Rate from SpO2 Sensor 79 79 Respiratory Rate 19 18 16 Respiratory Effort / Characteristics Respiratory Depth Blood Pressure 140/85 145/85 H Blood Pressure Mean 94 105 Blood Pressure Position Lying Pulse Oximetry 96 99 98 Oxygen Delivery Method Sepsis Recent Fever Within 48 Hours Sepsis Action Taken by Nursing 10/05/19 13:30 10/05/19 13:31 10/05/19 13:40 Temperature Temperature Source Pulse Rate 76 78 80 Pulse Rate from SpO2 Sensor 77 79 80 Respiratory Rate 17 19 18 Respiratory Effort / Characteristics Respiratory Depth Blood Pressure 137/82 Blood Pressure Mean 100 Blood Pressure Position Pulse Oximetry 97 98 97 Oxygen Delivery Method Room Air Sepsis Recent Fever Within 48 Hours Sepsis Action Taken by Nursing 10/05/19 13:45 10/05/19 13:50 10/05/19 14:00 Temperature 37.1 C Temperature Source Oral Pulse Rate 80 83 79 Pulse Rate from SpO2 Sensor 79 83 79 Respiratory Rate 19 18 19 Respiratory Effort / Characteristics Respiratory Depth Blood Pressure 146/84 H 146/86 H Blood Pressure Mean 106 101 Blood Pressure Position Pulse Oximetry 96 95 92 Oxygen Delivery Method Sepsis Recent Fever Within 48 Hours Sepsis Action Taken by Nursing 10/05/19 14:01 10/05/19 14:10 10/05/19 14:15 Temperature Temperature Source Pulse Rate 77 81 83 Pulse Rate from SpO2 Sensor 79 82 83 Respiratory Rate 20 22 23 Respiratory Effort / Characteristics Respiratory Depth Blood Pressure 157/88 H Blood Pressure Mean 108 Blood Pressure Position Pulse Oximetry 95 96 96 Oxygen Delivery Method Room Air Sepsis Recent Fever Within 48 Hours Sepsis Action Taken by Nursing GENERAL: Cachectic appearing. Awake, alert, in no distress HENT: Normocephalic. Scant dried blood in bilateral nares without active hemorrhage or appreciable clots. Oropharynx unremarkable. Mucous membranes dry. EYES: Normal conjunctiva. Sclera non-icteric. EOMI. No nystamgus. PEARRL. NECK: Supple. No nuchal rigidity. FROM. No JVD. RESPIRATORY: CTAB. CARDIAC: Regular rate, normal rhythm. Extremities warm and well perfused. Pulses equal. ABDOMEN: Soft, non-distended. No tenderness to palpation. No rebound or guarding. No masses. RECTAL: Deferred. MUSCULOSKELETAL: Chest examination reveals no tenderness. The back is symmetrical on inspection without obvious abnormality. There is no CVA tenderness to palpation. No joint edema. LOWER EXTREMITIES: Calves are equal size bilaterally and non-tender. No edema. No discoloration. NEURO: Normal sensorium. No sensory or motor deficits noted. Normal cerebellar function including finger to nose, alternating palms and heal to macias. 5/5 strength. SILT x 4 extremities. SKIN: Pallor. No rash or jaundice noted. Course Course 1109: The patient was evaluated in room C9, and a complete history and physical examination were performed. 1223: I reevaluated the patient at this time. 1230: I discussed the patients case with Dr. Gonsales [facility] hospitalist. She will evaluate the patient for further management. Administered Medications Morphine Sulfate (Ms Contin) 30 mg PO BID [facility] Stop: 10/19/19 20:59 Last Admin: 10/05/19 20:09 Dose: 30 mg Documented by: [id number] Multivitamins/Minerals (Multivitamin W/ Minerals Tab) 1 tab PO AMHS [facility] Stop: 11/04/19 20:59 Last Admin: 10/05/19 19:18 Dose: 1 tab Documented by: [id number] Potassium Chloride (Klor-Con M20) 40 meq PO BID [facility] Stop: 11/04/19 20:59 Last Admin: 10/05/19 19:19 Dose: 40 meq Documented by: [id number] Potassium Phosphate (Phospha 250 Neutral 155-852-130 Mg) 1 tab PO BID [facility] Stop: 11/04/19 20:59 Last Admin: 10/05/19 19:18 Dose: 1 tab Documented by: [id number] Simvastatin (Zocor) 20 mg PO HS [facility] Stop: 11/04/19 20:59 Last Admin: 10/05/19 19:18 Dose: 20 mg Documented by: [id number] Discontinued Medications Sodium Chloride (Nss 1000ml) 1,000 mls @ 999 mls/hr IV .Q1H1M ONE Stop: 10/05/19 12:27 Last Infusion: 10/05/19 12:59 Dose: 0 mls/hr Documented by: [id number] Admin: 10/05/19 11:43 Dose: 999 mls/hr Documented by: [id number] Morphine Sulfate (Ms Contin) 30 mg PO ONCE ONE Stop: 10/05/19 17:04 Last Admin: 10/05/19 19:08 Dose: Not Given Documented by: [id number] Morphine Sulfate (Ms Contin) 15 mg PO ONE ONE Stop: 10/05/19 17:21 Last Admin: 10/05/19 17:26 Dose: 15 mg Documented by: [id number] Critical Care Time Critical Care Time: Yes Total Critical Care Time: 45 I have personally spent 45 minutes of critical care time in the direct management of this patient. This includes bedside care, interpretation of nerisas gnostic studies, and testing, discussion with consultants, patient, and family members, and other required patient management activities. This 45 minutes is in excess of all separately billable procedures. Medical Decision Making Differential Diagnosis Differential diagnosis: Etiologies such as vasovagal event, infection, hypoglycemia, electrolyte abnormalities, cardiac sources, intracerebral event, toxicologic, neurologic, as well as others were entertained. Medical Records Attestation: I reviewed the patient's medical records. Home Medications Current Medication List: was personally reviewed by me Laboratory Data Attestation: I reviewed the patient's lab results. Result diagrams: 10/05/19 16:56 10/05/19 11:24 Lab Results 10/05/19 10/05/19 10/05/19 Range/Units 11:24 11:24 11:45 WBC 3.09 L (4.8-10.8) K/uL RBC 2.16 L (4.2-5.4) M/uL Hgb 6.6 L* (12.0-16.0) g/dL Hct 21.7 L (37-47) % MCV 100.5 H (80-100) fL MCH 30.6 (25-34) pg MCHC 30.4 L (32-36) g/dL Plt Count 17 L* (130-400) K/uL Immature Gran % (Auto) 0.6 % Neut % (Auto) 42.2 % Lymph % (Auto) 45.6 % [place] % (Auto) 11.0 % Eos % (Auto) 0.6 % Baso % (Auto) 0.0 % Immature Gran # (Auto) 0.02 (0.00-0.02) K/uL Neut # (Auto) 1.30 L (1.4-6.5) K/uL Lymph # (Auto) 1.41 (1.2-3.4) K/uL [place] # (Auto) 0.34 (0.11-0.59) K/uL Eos # (Auto) 0.02 (0-0.5) K/uL Baso # (Auto) 0.00 (0-0.2) K/uL Rouleaux 2+ Sodium Not Reportable Potassium Not Reportable Chloride Not Reportable Carbon Dioxide Not Reportable Anion Gap Not Reportable BUN Not Reportable Creatinine Not Reportable Est Cr Clr Drug Dosing Not Reportable Est GFR ( Amer) Not Reportable Est GFR (Non-Af Amer) Not Reportable BUN/Creatinine Ratio Not Reportable Glucose Not Reportable Calcium Not Reportable Phosphorus Not Reportable Magnesium Not Reportable Total Bilirubin Not Reportable Direct Bilirubin Not Reportable AST Not Reportable ALT Not Reportable Alkaline Phosphatase Not Reportable Troponin I Not Reportable Total Protein Not Reportable Albumin Not Reportable Globulin Not Reportable Albumin/Globulin Ratio Not Reportable Lipase Not Reportable TSH Not Reportable Urine Color Urine Appearance (Clear) Urine pH (4.5-7.5) Ur Specific [place] (1.000-1.030) Urine Protein (Negative) Urine Glucose (UA) (Negative) Urine Ketones (Negative) Urine Blood (Negative) Urine Nitrite (Negative) Urine Bilirubin (Negative) Urine Urobilinogen (Negative) Ur Leukocyte Esterase (Negative) Influenza Type A (PCR) (Neg) Influenza Type B (PCR) (Neg) Blood Type O Positive Antibody Screen NEGATIVE Crossmatch See Detail 10/05/19 10/05/19 Range/Units 12:00 14:40 WBC (4.8-10.8) K/uL RBC (4.2-5.4) M/uL Hgb (12.0-16.0) g/dL Hct (37-47) % MCV (80-100) fL MCH (25-34) pg MCHC (32-36) g/dL Plt Count (130-400) K/uL Immature Gran % (Auto) % Neut % (Auto) % Lymph % (Auto) % Child[place] % (Auto) % Eos % (Auto) % Baso % (Auto) % Immature Gran # (Auto) (0.00-0.02) K/uL Neut # (Auto) (1.4-6.5) K/uL Lymph # (Auto) (1.2-3.4) K/uL [place] # (Auto) (0.11-0.59) K/uL Eos # (Auto) (0-0.5) K/uL Baso # (Auto) (0-0.2) K/uL Rouleaux Sodium Potassium Chloride Carbon Dioxide Anion Gap BUN Creatinine Est Cr Clr Drug Dosing Est GFR ( Amer) Est GFR (Non-Af Amer) BUN/Creatinine Ratio Glucose Calcium Phosphorus Magnesium Total Bilirubin Direct Bilirubin AST ALT Alkaline Phosphatase Troponin I Total Protein Albumin Globulin Albumin/Globulin Ratio Lipase TSH Urine Color Yellow Urine Appearance Clear (Clear) Urine pH 5.5 (4.5-7.5) Ur Specific [place] 1.011 (1.000-1.030) Urine Protein Negative (Negative) Urine Glucose (UA) Negative (Negative) Urine Ketones Negative (Negative) Urine Blood Negative (Negative) Urine Nitrite Negative (Negative) Urine Bilirubin Negative (Negative) Urine Urobilinogen Negative (Negative) Ur Leukocyte Esterase Negative (Negative) Influenza Type A (PCR) Neg for Influ A (Neg) Influenza Type B (PCR) Neg for Influ B (Neg) Blood Type Antibody Screen Crossmatch Imaging Data Radiologist's Impression: Radiology results as stated below per my review and the radiologist's interpretation: CT head/brain wo con CLINICAL HISTORY: syncope, metastatic disease SEIZURE COMPARISON STUDY: August 2011 TECHNIQUE: Axial CT of the brain is performed from the vertex to the skull base. IV contrast was not administered for this examination. A dose lowering technique was utilized adhering to the principles of ALARA. CT DOSE: 537.48 mGy.cm FINDINGS: No intra or extra-axial mass lesions are visualized. There is no CT evidence of acute cortical infarction. There is no evidence of midline shift. There is no acute hemorrhage. No calvarial fractures are visualized. There are patchy white matter hypodensities likely on a small vessel basis. There is no evidence of pathologic ventricular dilatation. There are bilateral sphenoid sinus air-fluid levels. There is opacification of several ethmoid air cells. IMPRESSION: 1. Inflammatory changes within the paranasal sinuses with sphenoid sinus air- fluid levels 2. Otherwise no acute intracranial findings. ACT 112: Negative or not required by law. Electronically signed by: Paul Tolentino M.D. 10/05/2019 12:11 PM XR chest 1V portable HISTORY: Atypical Chest Pain COMPARISON: Chest 05/19/2019. Chest x-ray 12/06/2017. FINDINGS: No pneumothorax. No pleural effusions. The heart remains mildly enlarged. Hazy appearance to the right mid to lower lung zone remains unchanged and favors a combination of postoperative changes and the patient's known metastatic disease. There are surgical clips within the right axilla. No evidence for pulmonary edema. No new focal lung consolidations to suggest pneumonia. No evidence for pulmonary edema. IMPRESSION: No significant change compared to the prior study. No acute process. Right mid to lower lung zone density persists and favors a combination of postoperative changes and the patient's known metastatic disease. ACT 112: Negative or not required by law. Electronically signed by: Ovidio Albright M.D. 10/05/2019 12:39 PM ECG Data Attestation: I personally reviewed and interpreted this ECG as follows: Indication: + syncope Rate (beats per minute): 69 Rhythm: + normal sinus ECG [place]: + Normal ECG ST segments: no ST depression and no ST elevation ECG Findings: + Other (QT-c 413.); no PACs and no PVCs Blood Pressure Blood Pressure Findings: Elevated blood pressure Blood Pressure Disposition: further management by hospitalist MDM Narrative The patient is a pleasant 78-year-old woman with a past medical history of metastatic disease on chemotherapy, HTN, HLD who presents emergency department after having a syncopal episode today with witnessed facial droop (that resolved) in the cancer center after having a blood draw and stood up to transfer to a chair to begin her chemotherapy infusion but syncopized per HPI. On arrival the patient is chronically ill-appearing but no acute distress, afebrile stable vital signs. On exam patient appears clinically dry. She is cachectic. She is neurologically intact without focal neuro deficit. Face sy mmetric. 5/5 strength and SILT x 4 extremities. Cerebellar function intact including [id number], alternating palms, [id number]. She does have scant dried blood in bilateral nares without appreciable clots. She does report an intermittent slow bloody ooze/epistaxis over the past week. She denies any brisk persistent bleeding. EKG without overt acute ischemia. Chest x-ray negative for acute process. CT head negative for acute process other than paranasal sinus disease. Blood work was notable for anemia with H/H 6.6/21.7 down from 9.8/31.5 last month and thrombocytopenia of 17K similar to recent. Chemistry required send out to [place] 2/2 interference with analyzer and was pending Given the patient's syncopal episode in setting of anemia in the setting of a recent chronic thrombocytopenia patient was consented for blood and platelet transfusion. Patient agreeable with admission. Case was discussed with Dr. Gonsales, [facility] hospitalist, who will evaluate the patient for admission. Impression & Plan Syncope, Anemia, Thrombocytopenia, Metastatic disease Discharge Plan Visit Data *Final* Discharge Date/Time: 10/05/19 15:55 Chief Complaint: Seizure ED Provider: Dusty Elias Discharge Problem: Syncope, Anemia, Thrombocytopenia, Metastatic disease Patient Disposition: Admitted As Inpatient Discharge Instructions Interventions: ED Discharge Assessment Last Done: 10/05/19 15:55 Discharge Problem: Syncope Qualifiers: Syncope type: unspecified Qualified Code(s): R55 - Syncope and collapse Anemia Qualifiers: Anemia type: unspecified type Qualified Code(s): D64.9 - Anemia, unspecified The scribe's documentation has been prepared under my direction and personally reviewed by me in its entirety. I confirm that the note above accurately reflects all work, treatment, procedures, and medical decision making performed by me.
[2019-10-05] MEDS: POT PHOSPHATE MONOBASIC W/ SOD TAB PO SCH (19:18)
[2019-10-05] MEDS: CEROVITE ADV FORMULA TAB PO SCH (19:18)
[2019-10-05] MEDS: SIMVASTATIN 20 MG TAB PO SCH (19:18)
[2019-10-05] MEDS: POTASSIUM CHLORIDE 20 MEQ TABCR PO SCH (19:19)
[2019-10-05] MEDS: MoRPHine SULFATE CR 15 MG TABCR PO SCH (20:09)
--- NOTE | 2019-10-05 21:58 | Magnetic Resonance Report ---
MR brain wo con CLINICAL HISTORY: 78 years-old Female presenting with TIA, syncope, seizure, metastatic disease, hist ory of breast and lung cancer. TECHNIQUE: Multisequence, multiplanar MR imaging of the brain was performed without the use of intrav enous contrast. IV contrast: None. COMPARISON: CT head performed earlier the same day. FINDINGS: Localizer images: Unremarkable. Bone marrow signal intensity within the calvarium within normal limits. Normal midline sagittal structures. Proportional ventricular and sulcal prominence, likely age-relate d parenchymal volume loss. No mass effect or midline shift. No restricted diffusion or hemorrhage. Pe riventricular and subcortical white matter T2/FLAIR hyperintensity, nonspecific but likely indicative of chronic small vessel ischemic change. No extra-axial fluid collection. T2 skull base flow voids preserved. Nonspecific mild mucosal thicken ing in the left sphenoid sinus and ethmoid air cells. IMPRESSION: 1. Chronic small vessel ischemic change. No acute intracranial abnormality. 2. Allowing for noncontrast technique, which moderately decreases diagnostic sensitivity, no evidenc e of intracranial metastatic disease. ACT 112: Negative or not required by law. Electronically signed by: Renaldo Sage M.D. 10/05/2019 9:57 PM
--- NOTE | 2019-10-05 22:19 | Ultrasound Report ---
US carotid doppler BI CLINICAL HISTORY: 78 years-old Female presenting with TIA. TECHNIQUE: Real-time grayscale and color and spectral Doppler ultrasound imaging of the bilateral car otid arteries was performed. Stenosis measurements were based on NASCET-like criteria (distal lumen d iameter as the denominator for stenosis measurement). COMPARISON: None. FINDINGS: RIGHT: Common carotid artery (CCA): Atherosclerosis at the carotid bulb. Peak systolic velocity (PSV) 62 cm/ s. Internal carotid artery (ICA): Patent. PSV 67 cm/s. End diastolic velocity (EDV) 22 cm/s. ICA/CCA (systolic) ratio: 1.1. External carotid artery (ECA): Patent. PSV 68 cm/s. LEFT: CCA: Atherosclerosis at the carotid bulb. PSV 62 cm/s. ICA: Patent. PSV 72 cm/s. EDV 26 cm/s. ICA/CCA (systolic) ratio: 1.2. ECA: Patent. PSV 77 cm/s. Bilateral antegrade flow within the vertebral arteries. Blood pressure: Brachial: Right: 142/85 mmHg, Left: 137/72 mmHg. Reference ranges: Stenosis measurements are compared to reference velocity parameters by the Society of Radiologists in Ultrasound (SRU) consensus and Sonographic NASCET index (S-NASCET). * SRU Primary parameters: ICA PSV <125 cm/s = normal or less than 50% stenosis; ICA PSV 125-230 cm/s = 50-69% stenosis; ICA PSV >230 cm/s = greater than or equal to 70% stenosis. * SRU Additional parameters: ICA/CCA PSV ratio <2 = normal or less than 50% stenosis; ratio 2-4 = 5 0-69% stenosis; ratio >4 = greater than or equal to 70% stenosis. ICA EDV <40 cm/s = normal or less t soliz 50% stenosis; ICA EDV 40-100 cm/s = 50-69% stenosis; ICA EDV >100 cm/s = greater than or equal to 70% stenosis. * S-NASCET parameters: Deceleration spectral broadening + PSV <125 cm/s = less than 50% stenosis; pa nsystolic spectral broadening + PSV <125 cm/s = 16-49% stenosis; pansystolic spectral broadening + PS V >125 cm/s + EDV <110 cm/s or ICA/CCA PSV ratio 2-4 = 50-69% stenosis; pansystolic spectral broadeni ng + PSV >270 cm/s OR EDV >110 cm/s OR ICA/CCA PSV ratio >4 = 70-79% stenosis; EDV >140 cm/s = 80-99% stenosis. IMPRESSION: 1. No hemodynamically significant stenosis seen within the carotid arteries. ACT 112: Negative or not required by law. Electronically signed by: Renaldo Sage M.D. 10/05/2019 10:18 PM
[2019-10-06] MEDS: LEVOTHYROXINE SODIUM 25 MCG TABLET PO SCH (06:18)
--- NOTE | 2019-10-06 07:11 | CT Scan Report ---
CT SCAN OF THE ABDOMEN AND PELVIS WITHOUT CONTRAST CLINICAL HISTORY: Gastrointestinal hemorrhage. HISTORY OF BREAST LUNG CARCINOMA COMPARISON STUDY: 09/16/2018 TECHNIQUE: CT scan of the abdomen and pelvis was performed from the lung bases to the proximal femurs . Images are reviewed in the axial, sagittal, and coronal planes. IV contrast was not administered fo r this examination. A dose lowering technique was utilized adhering to the principles of ALARA. CT DOSE: 254.69 mGy.cm FINDINGS: Lower chest: There are small right pleural effusion. Postsurgical changes are present within the righ t lung. Liver: There is a 12 cm hepatic mass with involvement of both the right and left lobes. This contains areas of calcification. The mass is similar in size when compared the preceding study. Also evident is a 15 mm hypodensity within the left hepatic lobe possibly representing a cyst. Gallbladder: Mildly distended. No calculi are visualized. Spleen: Normal in size and attenuation. Pancreas: Poorly evaluated given the paucity of intra-abdominal fat and the lack of intravenous contr ast. No definite masses identified Adrenal glands: Mild bilateral adrenal gland thickening Kidneys: There is bilateral hydronephrosis more severe on the right. There is right-sided nephrolithi asis. There is a 7 cm right renal cyst. There is a 35 mm solid left renal mass at the level the left renal hilum. Bowel: Evaluation of bowel is limited given the paucity of intra-abdominal fat and the lack of intrav enous and oral contrast. There are multiple fluid-filled small bowel loops without evidence of a disc rete transition zone. Clinical follow-up is advocated. Peritoneum: There is no intraperitoneal free air or abdominal ascites. Vasculature: The abdominal aorta is normal in course and caliber. Adenopathy: None. Pelvic viscera: The uterus appears surgically absent Skeletal structures: There is a pathologic right acetabular fracture. There is a 5 cm destructive rig ht acetabular mass. There is a lytic lesion involving the right inferior pubic ramus posteriorly. The re is a healing right pubic ramus fracture. There are sclerotic lesions involving the left acetabulum left pubic ramus and left proximal femur. Skeletal metastasis is a diagnosis of exclusion. There is a 5.2 cm mass in the left paraspinal musculature posterior laterally, suspicious for metastatic depos it. IMPRESSION: 1. Difficult study to interpret given the paucity of intra-abdominal fat and the lack of intravenous and oral contrast. 2. Large exophytic 12 cm hepatic mass 3. 5.2 cm left paraspinal mass suspicious for metastatic deposit 4. 3.5 cm solid mass in the region of the left renal hilum 5. Evidence of skeletal metastasis with lytic lesions involving the right acetabulum ilium and ischia l. There is a comminuted right acetabular fracture 6. Small right pleural effusion 7. Mild gallbladder distention 8. Multiple fluid-filled small bowel loops without evidence of a discrete transition zone. Clinical f ollow-up is advocated ACT 112: Negative or not required by law. Electronically signed by: Paul Tolentino M.D. 10/06/2019 7:09 AM
[2019-10-06 07:25] LABS: Hematocrit (blood only) 27.3 % (37-47); Hemoglobin 8.8 g/dL (12.0-16.0); Mean Corpuscular Hemoglobin 31.4 pg (25-34); Mean Corpuscular Hgb Conc 32.2 g/dL (32-36); Mean Corpuscular Volume 97.5 fL (80-100); RDW Coefficient of Variation 21.6 % (11.5-14.5); White Blood Count 1.73 K/uL (4.8-10.8)
[2019-10-06 07:35] LABS: Mean Platelet Volume 9.2 fL (7.4-10.4)
[2019-10-06 07:36] LABS: Platelet Count 37 K/uL (130-400)
[2019-10-06 07:54] LABS: Eosinophils # (auto) 0.03 K/uL (0-0.5); Eosinophils % (auto) 1.7 %; Immature Granulocytes # (auto) 0.01 K/uL (0.00-0.02); Immature Granulocytes % (auto) 0.6 %; Lymphocytes # (auto) 0.83 K/uL (1.2-3.4); Monocytes % (auto) 11.6 %; Neutrophils # (auto) 0.66 K/uL (1.4-6.5); Neutrophils % (auto) 38.1 %; Rouleaux 2+; Toxic Granulation 1+
[2019-10-06 08:10] LABS: Estimated Average Glucose 120 mg/dl; Hemoglobin A1C 5.8 % (4.5-5.6)
[2019-10-06] MEDS: INDAPAMIDE 1.25 MG TAB PO SCH (08:28)
[2019-10-06] MEDS: CEROVITE ADV FORMULA TAB PO SCH ×2 (08:29→20:37)
[2019-10-06] MEDS: POTASSIUM CHLORIDE 20 MEQ TABCR PO SCH ×2 (08:29→20:37)
[2019-10-06] MEDS: PANTOprazole 40 MG TAB PO SCH (08:30)
[2019-10-06] MEDS: POT PHOSPHATE MONOBASIC W/ SOD TAB PO SCH ×2 (08:30→20:37)
[2019-10-06] MEDS: MAGNESIUM OXIDE 400 MG TAB PO SCH (08:30)
[2019-10-06] MEDS: MoRPHine SULFATE CR 15 MG TABCR PO SCH ×2 (08:33→20:14)
--- NOTE | 2019-10-06 15:08 | Hospitalist Progress Note ---
Date of Service October 06, 2019 Assessment & Plan (1) TIA (transient ischemic attack): Episode of non responsiveness with facial droop in the Cancer [facility] on 10/05 - Resolved today TTE pending MRI brain without contrast - chronic small vessel ischemic change. 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 Given 2 units of blood and platelets in the emergency room - appropriate rise ni hgb CT abdomen pelvis - large exophytic 12 cm hepatic mass, 5.2 cm left paraspinal mass, 3.5 cm solid mass in left renal hilum, skeletal mets with lytic lesions in the right acetabulum, ilium and ischial. Comminuted right acetabular fracture. Also shows: Mild gallbladder distention, multiple fluid-filled small bowel loops without evidence of a discrete transition zone - patient without any GI symptoms. - will order US gallbladder Fecal occult blood of every stool pending. Consult oncology. (4) Gastroesophageal reflux disease: Continue home medicine pantoprazole 40 mg p.o. every morning. (5) Hyperlipemia: Fasting lipid panel pending. Continue simvastatin 20 mg p.o. 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 No home medication listed. (7) Hypertension: Stable. Chronic issue. Patient is not any blood pressure medicine. Continue home medicine potassium chloride 40 M EQ p.o. twice daily. Continue monitoring every 4 hours (8) Malignant solitary fibrous neoplasm: Consult pairer inspector oncologist. Primary pairer inspector oncologist is Dr. Brizuela. Severe anemia and pancytopenia is most likely due to metastatic malignant solitary fibrous neoplasm. Discussed case with Lalo Aguirre PA-C in Dr. Artis office from the Cancer Center at [facility] in [place]. Her current recommendation is to continue supportive care to see if pancytopenia will resolve and then a new plan for cancer care can be made going forward. She will also discuss case with Dr. Barajas and call back with any further recommendations. She requests that records be sent - order placed to do so. Patient's blood is too viscous to run prp, lipid panel - will continue with maintenance fluids for now (9) Obstructive sleep apnea syndrome in adult: Offered CPAP at night. (10) Hyperglycemia: Lab value was not reportable. Repeat chemistry continues to be not reportable as above A1c 5.8 (11) Protein calorie malnutrition: chemist organic consult Subjective Ms. Driver feels a bit tired but otherwise has no complaints. She is accompanied by her son at bedside. ROS Constitutional: no chills, aches, sweats or fever Respiratory: no sob,cough, sputum, or wheezing Cardiac: no chest pain, palpitations, edema, orthopnea or lightheadedness GI: no abdominal pain, nausea, vomiting, diarrhea or constipation : no dysuria or hesitancy Extremities: no joint pain or weakness Skin: no rash All other systems reviewed and negative Physical Exam Physical Exam: General: no distress, cachectic Eyes: normal inspection, PERLL Respiratory: chest non tender, clear to auscultation, normal breath sounds, no respiratory distress, no accessory muscle use Cardiac: regular rate and rhythm, no rub or gallop, no murmur, no edema, no jvd GI/: active bowel sounds, no abd pain or tenderness, soft, non distended Extremities: normal range of motion, normal strength, non tender Neuro/Psych: alert and oriented x 3, normal mood and affect, CN II - XII intact Skin: normal color, dry Results & Data Vital Signs (Past 12 Hours) Vital Signs Temp Pulse Pulse Resp BP BP Pulse Ox 10/06/19 12:07 37.3 C 70 18 159/77 H 10/06/19 08:01 36.6 C 88 18 147/78 H 91 10/06/19 04:03 37.0 C 98 H 19 153/87 H 98 PG Care Time/CCT Total # of Minutes Spent Total Time Spent with Patient: Total time spent is greater than 50% in coordination of care (as documented) at patient's floor/unit and/or counseling patient: (1) Anemia Anemia type: unspecified type Qualified Code(s): D64.9 - Anemia, unspecified
--- NOTE | 2019-10-06 15:15 | Palliative Care Consultation ---
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 Patient was at the cancer center to receive a chemo dose when she became unresponsive. She then woke up and had what looked like left sided facial droop. Patient was sent to the ED, CT head was negative. Carotid doppler shows no significant stenosis. MRI brain shows no acute changes. Patient's hgb was 6.6 on admission, she was transfused with blood. Hgb today >8. Patient is feeling much better. As for the cancer, she was initially diagnosed with right sided chest mass which was resected in 2016. It was determined to be a SFT. The cancer returned in the left side and metastasized to the right acetabulum, liver, renal hilum as well. Patient sees oncologist in [place] and follows locally with Dr. Brizuela. She was been receiving treatment with Avastin and another agent. Per last heme/onc note from [place] on 09/07/19, the disease has been stable on the [id number] scans in April and August. However, patient struggles with the pancytopenia and other general symptoms such as poor appetite, weight loss, and weakness. Palliative care is consulted to discuss general goals of care. -Met with patient and her son, Jeremias Driver. Patient is "feeling much better," today. She is awake, alert and oriented x4. She denies complaints at this time. -Patient's son Jeremias Driver would be her decision maker and is her POA. He lives in [place] but helps the patient tremendously. He does her grocery shopping, drives up to take her to appointments, prepares meals, does laundry/full time babysitter and calls her every day at least once. Patient otherwise lives at home alone but manages well at this time. -Patient was tearful throughout conversation. She and her son stated that in the last couple months, she has had to skip more doses of her chemo than she has actually received. We talked about some questions to ask the oncologist at her next appointment in regards to continuing this treatment and what the benefit is for her vs. stopping the chemo. -Patient's goal is to return home after the hospitalization and continue with current treatment plan if possible. We talked about advanced directives. Son Jeremias states that he does have POA paperwork at home that he will review, he is unsure if it has medical directives on it or not. I did state that this hospital can do living young if needed. Patient and son confirm her full code status at this time. -Made patient aware of outpatient palliative services. -We will follow periodically throughout hospitalization and as needed. 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 Patient was at the cancer center to receive a chemo dose when she became unresponsive. She then woke up and had what looked like left sided facial droop. Patient was sent to the ED, CT head was negative. Carotid doppler shows no significant stenosis. MRI brain shows no acute changes. Patient's hgb was 6.6 on admission, she was transfused with blood. Hgb today >8. Patient is feeling much better. As for the cancer, she was initially diagnosed with right sided chest mass which was resected in 2016. It was determined to be a SFT. The cancer returned in the left side and metastasized to the right acetabulum, liver, renal hilum as well. Patient sees oncologist in [place] and follows locally with Dr. Brizuela. She was been receiving treatment with Avastin and another agent. Per last heme/onc note from [place] on 09/07/19, the d isease has been stable on the [id number] scans in April and August. However, patient struggles with the pancytopenia and other general symptoms such as poor appetite, weight loss, and weakness. Palliative care is consulted to discuss general goals of care. -Met with patient and her son, Jeremias Driver. Patient is "feeling much better," today. She is awake, alert and oriented x4. She denies complaints at this time. -Patient's son Jeremias Driver would be her decision maker and is her POA. He lives in [place] but helps the patient tremendously. He does her grocery shopping, drives up to take her to appointments, prepares meals, does laundry/full time babysitter and calls her every day at least once. Patient otherwise lives at home alone but manages well at this time. -Patient was tearful throughout conversation. She and her son stated that in the last couple months, she has had to skip more doses of her chemo than she has actually received. We talked about some questions to ask the oncologist at her next appointment in regards to continuing this treatment and what the benefit is for her vs. stopping the chemo. -Patient's goal is to return home after the hospitalization and continue with current treatment plan if possible. We talked about advanced directives. Son Jeremias states that he does have POA paperwork at home that he will review, he is unsure if it has medical directives on it or not. I did state that this hospital can do living young if needed. Patient and son confirm her full code status at this time. -Made patient aware of outpatient palliative services. -We will follow periodically throughout hospitalization and as needed. Allergies Allergy/AdvReac Type Severity Reaction Status Date / Time Penicillins Allergy Mild UNKNOWN Verified 10/05/19 11:30 Cephalosporins Allergy Unknown KEFLEX PER Verified 10/05/19 11:30 UNCODED ALLERGIES-UNKNOWN TO PT Home Medications Home Medications Medication Instructions Recorded Confirmed Type indapamide 1.25 mg PO QAM 10/10/18 10/05/19 History simvastatin 20 mg PO HS 10/10/18 10/05/19 History vit C,F-Re-fsewe-lutein-zeaxan 1 tab PO AMHS 10/10/18 10/05/19 History [PreserVision AREDS-2] levothyroxine 25 mcg PO QAM 10/30/18 10/05/19 History magnesium oxide [MagOx] 400 mg PO DAILY #5 tab 10/30/18 10/05/19 Rx pantoprazole 40 mg PO QAM 10/30/18 10/05/19 History sod phos di, mono-K phos mono 250 mg PO BID 10/30/18 10/05/19 History [Phospha 250 Neutral] morphine 30 mg PO BID 10/05/19 10/05/19 History potassium chloride 40 meq PO BID 10/05/19 10/05/19 History Patient History Medical History Acute anterior epistaxis (Inactive) Anemia (Inactive) Bone cancer (Chronic) Breast cancer (Acute) Chronic sinusitis (Acute) Diverticulosis (Acute) Gastroesophageal reflux disease (Acute) Hemorrhoids (Chronic) Hypercholesterolemia (Acute) Hyperglycemia (Acute) Hyperlipemia (Chronic) Hypertension (Chronic) 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 Tis apical N0M0 stage 0 Status post completion of radiation therapy 01/16/2006 received 6120 cGy Status post left breast biopsy 01/03/2011 showing adenosis with associated microcalcifications, fibrocystic changes with associated ductal hyperplasia" Malignant solitary fibrous neoplasm (Chronic) Metastatic carcinoma (Inactive) Obstructive sleep apnea syndrome in adult (Acute) Osteoarthritis (Acute) 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 (Chronic) Surgical History H/O: hysterectomy (Chronic) Family History Other Family history non-contributory Social History Preferred Language: Danish Communication Ability: Effective Beliefs That Will Affect Care: Bahai marital status: / Current Living Situation: Alone current occupational status: retired Feels Safe at Home: Yes Smoking Status: Never smoker Hx Alcohol Use: No Hx Substance Use: No Review of Systems Review of Systems: Const: No weakness; poor appetite Resp: No SOB, no cough Cardio: No chest pain, no edema GI: No abdominal pain, occasional nausea MS: No musculoskeletal pain (controlled with oral morphine) Neuro: + occasional confusion at home per the patient's son Psych: No anxiety, no depression Physical Exam Constitutional: + thin and + frail appearing; no acute distress ENMT: external ear and nose normal, oropharynx normal Respiratory: normal respiratory effort; no labored breathing Cardiovascular: Rate/Rhythm: regular rate and regular rhythm Extremities: no edema Gastrointestinal (Abdomen): Inspection/Auscultation: abdomen not distended Percussion/Palpation: abdomen soft Skin: no rashes, warm and dry Neurologic: moves all extremities and awake; not confused Psychiatric: A+Ox3, euthymic affect Insight: good insight Results & Data Vital Signs (Past 12 Hours) Vital Signs Temp Pulse Pulse Resp BP BP Pulse Ox 10/06/19 12:07 37.3 C 70 18 159/77 H 10/06/19 08:01 36.6 C 88 18 147/78 H 91 10/06/19 04:03 37.0 C 98 H 19 153/87 H 98 Time Spent Midlevel 70 minutes with >50% of the time spent at bedside with patient and family discussing condition and GOC.
[2019-10-06] MEDS: SODIUM CHLORIDE 0.9% 1000ML 1,000 ML IV SCH (15:55)
--- NOTE | 2019-10-06 16:44 | Oncology Consultation ---
Date of Consultation October 06, 2019 Assessment & Plan (1) Pancytopenia due to chemotherapy: She responded appropriately to transfusion. I would consider transfusion again for platelets below 20K or for bleeding. I spoke with Dr. Brizuela and we will need to make a change in her treatment regimen, as her counts are clearly not tolerating this therapy. I saw discussions were also had with her consulting oncologist in [place] and their input is also appreciated. Present on Admission?: Yes (2) TIA (transient ischemic attack): I did not witness the neurologic symptoms personally, but they were described to me by one of our nurses. She had no focal neurologic deficits when I saw her yesterday or this morning. She is undergoing a workup for this and I will defer to her primary team. Neither of her anti-neoplastic agents is typically associated with CVA or TIA, though Avastin can rarely cause posterior reversible encephalopathy syndrome, particularly in the setting of hypertension. However, her symptoms are not really suggestive of this entity and she did not have the characteristic MRI findings. Present on Admission?: Yes History of Present Illness Reason for Consultation: Altered mental status and possible TIA Pancytopenia Metastatic fibrous tumor Attending Physician: Aniceto Quiles MD History of Present Illness Ms. Driver is a 78 year old woman with a history of FATOU, GERD, a previous history of breast cancer, and a current diagnosis of a malignant solitary fibrous tumor with metastatic disease. She is currently being treated with temozolomide and Avastin. She came to our infusion room yesterday for treatment and was disoriented and fatigued. One of my nurses observed what she described as a right-sided facial droop. By the time I evaluated her, a few minutes later, she had no obvious cranial nerve palsy or other focal neurologic signs, though she was confused and disoriented. We sent her to the ER, where imaging revealed no evidence of acute CVA. She was pancytopenic and got platelet and PRBC transfusions and responded appropriately. She was more alert this morning when I saw her. She remembers parts of the events of yesterday, but was somewhat fuzzy on the details. She denied any fevers, cough, shortness of breath, chest pain, leg swelling, abdominal pain, nausea, diarrhea, dysuria, joint pains, or new skin changes. Allergies Allergy/AdvReac Type Severity Reaction Status Date / Time Penicillins Allergy Mild UNKNOWN Verified 10/05/19 11:30 Cephalosporins Allergy Unknown KEFLEX PER Verified 10/05/19 11:30 UNCODED ALLERGIES-UNKNOWN TO PT Home Medications Home Medications Medication Instructions Recorded Confirmed Type indapamide 1.25 mg PO QAM 10/10/18 10/05/19 History simvastatin 20 mg PO HS 10/10/18 10/05/19 History vit C,H-Mb-vqgkb-lutein-zeaxan 1 tab PO AMHS 10/10/18 10/05/19 History [PreserVision AREDS-2] levothyroxine 25 mcg PO QAM 10/30/18 10/05/19 History magnesium oxide [MagOx] 400 mg PO DAILY #5 tab 10/30/18 10/05/19 Rx pantoprazole 40 mg PO QAM 10/30/18 10/05/19 History sod phos di, mono-K phos mono 250 mg PO BID 10/30/18 10/05/19 History [Phospha 250 Neutral] morphine 30 mg PO BID 10/05/19 10/05/19 History potassium chloride 40 meq PO BID 10/05/19 10/05/19 History Patient History Medical History Acute anterior epistaxis (Inactive) Anemia (Inactive) Bone cancer (Chronic) Breast cancer (Acute) Chronic sinusitis (Acute) Diverticulosis (Acute) Gastroesophageal reflux disease (Acute) Hemorrhoids (Chronic) Hypercholesterolemia (Acute) Hyperglycemia (Acute) Hyperlipemia (Chronic) Hypertension (Chronic) 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 Tis apical N0M0 stage 0 Status post completion of radiation therapy 01/16/2006 received 6120 cGy Status post left breast biopsy 01/03/2011 showing adenosis with associated microcalcifications, fibrocystic changes with associated ductal hyperplasia" Malignant solitary fibrous neoplasm (Chronic) Metastatic carcinoma (Inactive) Obstructive sleep apnea syndrome in adult (Acute) Osteoarthritis (Acute) 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 (Chronic) Surgical History H/O: hysterectomy (Chronic) Family History Other Family history non-contributory Social History Preferred Language: Omani Communication Ability: Effective Beliefs That Will Affect Care: Adventism marital status: / Current Living Situation: Alone current occupational status: retired Feels Safe at Home: Yes Smoking Status: Never smoker Hx Alcohol Use: No Hx Substance Use: No Review of Systems Review of Systems: All systems reviewed & are unremarkable except as noted in HPI & below Physical Exam Constitutional: + ill appearing (chronically), + thin and comfortable; no acute distress ENMT: external ear and nose normal, oropharynx normal Respiratory: normal respiratory effort, lungs clear to auscultation Cardiovascular: RRR, no murmur, no edema Gastrointestinal (Abdomen): Inspection/Auscultation: normal bowel sounds; abdomen not distended Percussion/Palpation: abdomen soft; abdomen nontender Neurologic: CN's II-XI intact bilaterally Psychiatric: A+Ox3, euthymic affect Results & Data Vital Signs (Past 12 Hours) Vital Signs Temp Pulse Pulse Resp BP Pulse Ox 10/06/19 16:29 36.7 C 78 18 135/82 91 10/06/19 12:07 37.3 C 70 18 159/77 H 10/06/19 08:01 36.6 C 88 18 147/78 H 91 Laboratory Results Abnormal lab results 10/05/19 10/05/19 10/06/19 Range/Units 11:45 16:56 07:02 WBC 2.31 L 1.73 L (4.8-10.8) K/uL RBC 2.40 L 2.80 L (4.2-5.4) M/uL Hgb 7.7 L 8.8 L (12.0-16.0) g/dL Hct 23.7 L 27.3 L (37-47) % RDW Std Deviation 75.5 H 73.0 H (36.4-46.3) fL RDW Coeff of Johnny 21.7 H 21.6 H (11.5-14.5) % Plt Count 40 L D 37 L (130-400) K/uL Neut # (Auto) 0.66 L* (1.4-6.5) K/uL Lymph # (Auto) 0.83 L (1.2-3.4) K/uL Absolute Nucleated RBC 0.02 H (0-0) K/uL Neutrophils # (Manual) 1.04 L (1.4-6.5) K/uL Total Absolute Neuts 1.04 L (1.4-6.5) K/uL Monocytes # (Manual) 0.07 L (0.11-0.59) K/uL Hemoglobin A1c (4.5-5.6) % Crossmatch See Detail 10/06/19 10/06/19 Range/Units 07:02 15:22 WBC (4.8-10.8) K/uL RBC (4.2-5.4) M/uL Hgb 8.9 L (12.0-16.0) g/dL Hct (37-47) % RDW Std Deviation (36.4-46.3) fL RDW Coeff of Johnny (11.5-14.5) % Plt Count (130-400) K/uL Neut # (Auto) (1.4-6.5) K/uL Lymph # (Auto) (1.2-3.4) K/uL Absolute Nucleated RBC (0-0) K/uL Neutrophils # (Manual) (1.4-6.5) K/uL Total Absolute Neuts (1.4-6.5) K/uL Monocytes # (Manual) (0.11-0.59) K/uL Hemoglobin A1c 5.8 H (4.5-5.6) % Crossmatch
--- NOTE | 2019-10-06 17:00 | Ultrasound Report ---
US gallbladder HISTORY: Pain gallbladder distension on CT COMPARISON: None. FINDINGS: 1.5 cm complex cyst. Lobe. Distended gallbladder with a small amount of sludge. No shadowing gallstones. Common bile duct 8 mm. Pancreas is unremarkable. Right kidney is negative for hydronephrosis. 6 cm up per pole cyst. IMPRESSION: 1. Distended gallbladder with a mild amount of gallbladder sludge. 2. Prominent biliary ductal system with common bile duct measuring 8 mm. 3. 6 cm upper pole right renal cysts with a moderately complex and/or septated right hepatic lobe cys t ACT 112: Negative or not required by law. The above report was generated using voice recognition software. It may contain grammatical, syntax or spelling errors. Electronically signed by: Anshul Rolbes M.D. 10/06/2019 4:58 PM
--- NOTE | 2019-10-06 17:57 | Orthopedic Consultation ---
Date of Consultation October 06, 2019 Assessment & Plan (1) Pathologic acetabular fracture: Her acetabular fracture is not new and she has not had any change in her ambulatory status. If I were to get x-rays of her pelvis, I would not have anything to compare them to. This is going to be nonoperative regardless. She is currently being followed by an orthopedic oncologist out in [place]. I will try to get a better idea from her medical team how much they want me to be involved with her care. I do not want to get x-rays and further diagnostic studies if she is just going to go to [place] and have the studies repeated. This will stay nonoperative. She has not had any change in her ambulatory status recently and she can continue to be weightbearing as tolerated as pain allows. Present on Admission?: Yes History of Present Illness Reason for Consultation: Right pathologic acetabular fracture Attending Physician: Aniceto Quiles MD History of Present Illness Kalyn is a pleasant 78-year-old female who is currently undergoing chemotherapy for multiple fibrous tumors. Over the past year she is noticed a significant decline in her health. Over the past year she is also been having difficulty ambulating. She ambulates with 2 canes. She has not noticed any significant difference in her hip pain over the past few months. She has not had any falls or traumas. Her treatment seems to be split between [place] and [facility]. She states she has been meeting with an orthopedic oncologist in [place] and she has had serial x-rays as well as MRIs of her hip and pelvis. The lytic lesions and fractures of her hip and pelvis have been stable. The orthopedic oncologist recommended against any surgical fixation. She has had no change in her hip pain or her ambulatory status recently. Upon this recent admit a CT scan was obtained of the pelvis. That the CT scan showed lytic lesions and an acetabular fracture. I do not have any prior CT scan to compare to. The most recent MRIs and x-rays were about 4 to 6 months ago and they do demonstrate lytic lesions and pathologic fractures at that time. Orthopedics was consulted to evaluate and treat the pathologic fractures of her right acetabulum. Allergies Allergy/AdvReac Type Severity Reaction Status Date / Time Penicillins Allergy Mild UNKNOWN Verified 10/05/19 11:30 Cephalosporins Allergy Unknown KEFLEX PER Verified 10/05/19 11:30 UNCODED ALLERGIES-UNKNOWN TO PT Home Medications Home Medications Medication Instructions Recorded Confirmed Type indapamide 1.25 mg PO QAM 10/10/18 10/05/19 History simvastatin 20 mg PO HS 10/10/18 10/05/19 History vit C,W-Cj-urdjp-lutein-zeaxan 1 tab PO AMHS 10/10/18 10/05/19 History [PreserVision AREDS-2] levothyroxine 25 mcg PO QAM 10/30/18 10/05/19 History magnesium oxide [MagOx] 400 mg PO DAILY #5 tab 10/30/18 10/05/19 Rx pantoprazole 40 mg PO QAM 10/30/18 10/05/19 History sod phos di, mono-K phos mono 250 mg PO BID 10/30/18 10/05/19 History [Phospha 250 Neutral] morphine 30 mg PO BID 10/05/19 10/05/19 History potassium chloride 40 meq PO BID 10/05/19 10/05/19 History Patient History Medical History Acute anterior epistaxis (Inactive) Anemia (Inactive) Bone cancer (Chronic) Breast cancer (Acute) Chronic sinusitis (Acute) Diverticulosis (Acute) Gastroesophageal reflux disease (Acute) Hemorrhoids (Chronic) Hypercholesterolemia (Acute) Hyperglycemia (Acute) Hyperlipemia (Chronic) Hypertension (Chronic) 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 Tis apical N0M0 stage 0 Status post completion of radiation therapy 01/16/2006 received 6120 cGy Status post left breast biopsy 01/03/2011 showing adenosis with associated microcalcifications, fibrocystic changes with associated ductal hyperplasia" Malignant solitary fibrous neoplasm (Chronic) Metastatic carcinoma (Inactive) Obstructive sleep apnea syndrome in adult (Acute) Osteoarthritis (Acute) 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 (Chronic) Surgical History H/O: hysterectomy (Chronic) Family History Other Family history non-contributory Social History Preferred Language: Kazakh Communication Ability: Effective Beliefs That Will Affect Care: Jew marital status: / Current Living Situation: Alone current occupational status: retired Feels Safe at Home: Yes Smoking Status: Never smoker Hx Alcohol Use: No Hx Substance Use: No Review of Systems Review of Systems: All systems reviewed & are unremarkable except as noted in HPI & below Physical Exam Constitutional: WD/WN, vitals as above Eyes: PERRL, conjunctivae normal, anicteric sclerae ENMT: external ear and nose normal, oropharynx normal Neck: trachea midline, no thyromegaly Respiratory: normal respiratory effort Cardiovascular: RRR, no murmur, no edema Gastrointestinal (Abdomen): normal bowel sounds, soft, nontender, no hepatosplenomegaly Musculoskeletal: On examination of her right hip, her leg lengths are equal. She does have pain with range of motion of her right hip. Psychiatric: A+Ox3, euthymic affect Results & Data Vital Signs (Past 12 Hours) Vital Signs Temp Pulse Pulse Resp BP Pulse Ox 10/06/19 16:29 36.7 C 78 18 135/82 91 10/06/19 12:07 37.3 C 70 18 159/77 H 10/06/19 08:01 36.6 C 88 18 147/[address] scan of the right pelvis was reviewed and there are multiple lytic lesions around the acetabulum and a comminuted acetabular fracture. PG Care Time/CCT Total # of Minutes Spent Total Time Spent with Patient: Total time spent is greater than 50% in coordination of care (as documented) at patient's floor/unit and/or counseling patient:
[2019-10-06] MEDS: SIMVASTATIN 20 MG TAB PO SCH (20:38)
[2019-10-07] MEDS: SODIUM CHLORIDE 0.9% 1000ML 1,000 ML IV SCH ×2 (04:30→17:31)
[2019-10-07] MEDS: LEVOTHYROXINE SODIUM 25 MCG TABLET PO SCH (06:34)
[2019-10-07 07:42] LABS: Hematocrit (blood only) 26.9 % (37-47); Hemoglobin 8.5 g/dL (12.0-16.0); Mean Corpuscular Hemoglobin 30.9 pg (25-34); Mean Corpuscular Hgb Conc 31.6 g/dL (32-36); Mean Corpuscular Volume 97.8 fL (80-100); RDW Coefficient of Variation 21.6 % (11.5-14.5); RDW Standard Deviation 74.7 fL (36.4-46.3); Red Blood Count 2.75 M/uL (4.2-5.4)
[2019-10-07 07:43] LABS: Mean Platelet Volume 8.5 fL (7.4-10.4); Platelet Count 31 K/uL (130-400)
--- NOTE | 2019-10-07 08:53 | Progress Note ---
Date of Service October 07, 2019 Pathology Note PATHOLOGY NOTE: This patients blood is currently too viscous to analyze with our chemistry analyzer. We sent one sample to the [facility] laboratory and they were unable to analyze it either. [facility] ([place] were called and they also stated that they would be unable to run the specimen. Notably, rouleaux are present on the patients blood smear and potentially the patient may have a plasma cell dyscrasia or similar disorder. This case was discussed with Dr. Nelson on 10/07/2019.
[2019-10-07 08:56] LABS: Eosinophils # (auto) 0.05 K/uL (0-0.5); Eosinophils % (auto) 2.4 %; Immature Granulocytes # (auto) 0.02 K/uL (0.00-0.02); Lymphocytes % (auto) 57.1 %; Monocytes # (auto) 0.26 K/uL (0.11-0.59); Monocytes % (auto) 12.4 %; Neutrophils # (auto) 0.57 K/uL (1.4-6.5); Neutrophils % (auto) 27.1 %; Rouleaux 2+
[2019-10-07] MEDS: CEROVITE ADV FORMULA TAB PO SCH ×2 (08:57→20:59)
[2019-10-07] MEDS: POT PHOSPHATE MONOBASIC W/ SOD TAB PO SCH ×2 (08:57→20:59)
[2019-10-07] MEDS: PANTOprazole 40 MG TAB PO SCH (08:57)
[2019-10-07] MEDS: INDAPAMIDE 1.25 MG TAB PO SCH (08:58)
[2019-10-07] MEDS: MAGNESIUM OXIDE 400 MG TAB PO SCH (08:58)
[2019-10-07] MEDS: MoRPHine SULFATE CR 15 MG TABCR PO SCH ×2 (09:04→20:59)
[2019-10-07] MEDS: POTASSIUM CHLORIDE 20 MEQ TABCR PO SCH ×2 (10:06→20:59)
--- NOTE | 2019-10-07 16:49 | Hospitalist Progress Note ---
Date of Service October 07, 2019 Assessment & Plan (1) TIA (transient ischemic attack): Episode of non responsiveness with facial droop [facility] on [facility] - Resolved today Unclear if this was a hypotensive episode vs TIA - patient certainly could have had an unresponsive episode due to hypotension secondary to anemia. The hyperviscosity of her blood could also have contributed. Echo without wma, normal EF elevated right ventricular systolic pressure MRI brain without contrast - chronic small vessel ischemic change. No acute abnormality, no mets Carotid doppler - no hemodynamically significant stenosis CT of the head without contrast negative for stroke or bleed Physical and Occupational Therapy Referred to swallow study No antiplatelets due to thrombocytopenia, continue home simvastatin (2) Pancytopenia due to chemotherapy: Neutropenic precautions Platelets 31,000 - replace if below 10,000 or s/s of bleeding CBC am Peripheral smear showed rouleaux are present on the patients blood smear and potentially the patient may have a plasma cell dyscrasia or similar disorder. 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 Given 2 units of blood and platelets in the emergency room - appropriate rise ni hgb CT abdomen pelvis - large exophytic 12 cm hepatic mass, 5.2 cm left paraspinal mass, 3.5 cm solid mass in left renal hilum, skeletal mets with lytic lesions in the right acetabulum, ilium and ischial. Comminuted right acetabular fracture. Also shows: Mild gallbladder distention, multiple fluid-filled small bowel loops without evidence of a discrete transition zone - patient without any GI symptoms. - gallbladder US showed distention with sludge but no cholecystitis - will hold on any further intervention or workup unless patient develops symptoms or fever given her complex issues Fecal occult blood of every stool pending. Consult oncology. Ortho consulted - no further work up at this time. Patient sees an oncology orthopedist in [place] (4) Hyperviscosity: Unclear source, prevents chemistry from being resulted Blood viscosity reference lab sent peripheral smear as above. (5) Gastroesophageal reflux disease: Continue home medicine pantoprazole 40 mg p.o. every morning. (6) Hyperlipemia: Fasting lipid panel unable to be run due to blood viscosity Continue simvastatin 20 mg p.o. nightly (7) 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: Stable at this time. No home medication listed. (8) Hypertension: Stable. Chronic issue. Patient is not on any blood pressure medicine. Continue home medicine potassium chloride 40 M EQ p.o. twice daily. Continue monitoring every 4 hours (9) Malignant solitary fibrous neoplasm: Consult tie up worker oncologist. Primary tie up worker oncologist is Dr. Brizuela. Severe anemia and pancytopenia is most likely due to metastatic malignant solitary fibrous neoplasm. Discussed case with Lalo Aguirre PA-C in Dr. Artis office from the [facility] at [facility] in [place]. Her current recommendation is to continue supportive care to see if pancytopenia will resolve and then a new plan for cancer care can be made going forward. She will also discuss case with Dr. Barajas and call back with any further recommendations. She requests that records be sent - order placed to do so. Will discuss with their office again tomorrow. At this time patient and son do not want patient to transfer to [place] Patient's blood is too viscous to run prp, lipid panel - will continue with maintenance fluids for now (10) Obstructive sleep apnea syndrome in adult: Offered CPAP at night. (11) Hyperglycemia: Lab value was not reportable. Repeat chemistry continues to be not reportable as above A1c 5.8 (12) Severe protein-calorie malnutrition: BMI 15 Coffee Roaster consult Subjective Ms. Driver continues to feel very fatigued but otherwise does not have specific complaints. I did discuss with the DAVID in Dr. Barajas's office concerning possible transfer to [place] and they would be willing to accept. However after a long discussion with the patient and her son they did not feel like they wanted to transfer at this time because it would be difficult for Ms. Driver's son to see her if she were in [place]. They understand that Ms. Driver is a complicated and advanced disease process but they are more comfortable at [facility] for the time being. They feel she would pretty well be alone there if she were to go. I did tell them that records were sent to Dr. Barajas and I would discuss her case with them again tomorrow. ROS Constitutional: no chills, aches, sweats or fever Respiratory: no sob,cough, sputum, or wheezing Cardiac: no chest pain, palpitations, edema, orthopnea or lightheadedness GI: no abdominal pain, nausea, vomiting, diarrhea or constipation : no dysuria or hesitancy Extremities: no joint pain or weakness Skin: no rash All other systems reviewed and negative Physical Exam Physical Exam: General: no distress Eyes: normal inspection, PERLL Respiratory: chest non tender, clear to auscultation, normal breath sounds, no respiratory distress, no accessory muscle use Cardiac: regular rate and rhythm, no rub or gallop, no murmur, no edema, no jvd GI/: active bowel sounds, no abd pain or tenderness, soft, non distended Extremities: normal range of motion, normal strength, non tender Neuro/Psych: alert and oriented x 3, normal mood and affect Skin: normal color, dry Results & Data Vital Signs (Past 12 Hours) Vital Signs Temp Pulse Pulse Resp BP Pulse Ox 10/07/19 16:17 37.1 C 81 16 151/91 H 92 10/07/19 14:48 84 10/07/19 11:41 37.0 C 86 18 149/92 H 98 10/07/19 07:47 36.6 C 79 19 134/79 91 10/07/19 07:37 73 PG Care Time/CCT Total # of Minutes Spent Total Time Spent with Patient: Total time spent is greater than 50% in coordination of care (as documented) at patient's floor/unit and/or counseling patient: (1) Anemia Anemia type: unspecified type Qualified Code(s): D64.9 - Anemia, unspecified
[2019-10-07] MEDS: SIMVASTATIN 20 MG TAB PO SCH (20:59)
[2019-10-08] MEDS: SODIUM CHLORIDE 0.9% 1000ML 1,000 ML IV SCH ×2 (05:58→19:15)
[2019-10-08] MEDS: LEVOTHYROXINE SODIUM 25 MCG TABLET PO SCH (06:31)
[2019-10-08] MEDS: POT PHOSPHATE MONOBASIC W/ SOD TAB PO SCH ×2 (08:42→19:44)
[2019-10-08] MEDS: CEROVITE ADV FORMULA TAB PO SCH ×2 (08:42→19:43)
[2019-10-08] MEDS: PANTOprazole 40 MG TAB PO SCH (08:42)
[2019-10-08] MEDS: INDAPAMIDE 1.25 MG TAB PO SCH (08:42)
[2019-10-08] MEDS: POTASSIUM CHLORIDE 20 MEQ TABCR PO SCH ×2 (08:43→19:41)
[2019-10-08] MEDS: MAGNESIUM OXIDE 400 MG TAB PO SCH (08:43)
[2019-10-08] MEDS: MoRPHine SULFATE CR 15 MG TABCR PO SCH ×2 (08:45→19:43)
[2019-10-08 09:29] LABS: Mean Corpuscular Hgb Conc 31.1 g/dL (32-36); Mean Platelet Volume 9.7 fL (7.4-10.4); Nucleated RBC # (auto) 0.05 K/uL (0-0); Nucleated RBC % (auto) 2.1 %; Platelet Count 22 K/uL (130-400)
[2019-10-08 10:01] LABS: ALC (manual) 1.15 K/uL (1.2-3.4); ANC (manual) 0.76 K/uL (1.4-6.5); Eosinophils # (manual) 0.02 K/uL (0-0.5); Hematocrit (blood only) 24.4 % (37-47); Hemoglobin 7.6 g/dL (12.0-16.0); Large Granular Lymph # (manua 0.44 K/uL; Lymphocytes # (manual) 0.71 K/uL (1.2-3.4); Mean Corpuscular Hemoglobin 30.4 pg (25-34); Mean Corpuscular Volume 97.6 fL (80-100); Monocytes # (manual) 0.37 K/uL (0.11-0.59); Neutrophils # (manual) 0.76 K/uL (1.4-6.5); RDW Coefficient of Variation 21.3 % (11.5-14.5); RDW Standard Deviation 74.4 fL (36.4-46.3); Rouleaux 2+; Toxic Granulation 1+; Toxic Vacuolation 1+
--- NOTE | 2019-10-08 14:06 | Discharge Summary ---
Date of Service October 08, 2019 Admission HPI Per Admitting Provider Patient is a 78 years old female with past medical history of hypertension, hyperlipidemia, history of breast cancer, obstructive sleep apnea, osteoarthritis, malignant metastatic solitary fibrous neoplasm who was brought from the cancer center after nurse who was installing a chemotherapy to patient noted that patient was not responding to her questions and was mentally absent and had face droop on the left. She called RT and patient was examined by , tape librarian oncologist who noted that at the time when he saw the patient face droop resolved as well as her near syncopal episode. Patient did not lose consciousness or she fell on the floor. Patient did not have a seizure there the history provided by the nurse nor by the tape librarian oncologist. Patient is now resting comfortably in the bed. She usually sees Dr. Brizuela her tape librarian oncologist for malignant solitary fibrosis neoplasm. Patient denies fever, chills, chest pain, shortness of breath, abdominal pain, frequency, urgency. Labs are reviewed and it was noted that patient is severely pancytopenic with WBCs of 3.09, hemoglobin 6.6, hematocrit 21.7, platelets of 17. Chemistry was not reported, order replaced. Urine negative. Negative for influenza A&B. CT head: Inflammatory changes within the paranasal sinuses with sphenoid sinus air-fluid levels. Otherwise no acute intracranial findings. Chest x-ray: No pneumothorax, no pleural effusion, the heart remains mildly enlarged. Hazy appearance to the right mid to lower lung zone remains unchanged and favors a combination of postoperative changes and the patient's known metastatic disease. No evidence of pulmonary edema. No new focal lung consolidation to suggest pneumonia. No significant change compared to the prior study. No acute process. Right mid to lower lung zone density persistent and favors a combination of postoperative changes and the patient known metastatic disease. Decision was made to admit patient to PCU on telemetry for severe pancytopenia, possibly transient ischemic attack versus stroke and or other treatments and managements. Principal Diagnosis Pancytopenia Discharge Exam Constitutional WD/WN, vitals as above Respiratory normal respiratory effort, lungs clear to auscultation Cardiovascular RRR, no murmur, no edema Gastrointestinal (Abdomen) Inspection/Auscultation: abdomen normal to inspection and normal bowel sounds; abdomen not distended Percussion/Palpation: abdomen soft; abdomen nontender Musculoskeletal no cyanosis or clubbing, extremities motor strength 5/5 Skin no rashes, warm and dry Neurologic moves all extremities and awake Psychiatric A+Ox3, euthymic affect Discharge Data Allergies Allergy/AdvReac Type Severity Reaction Status Date / Time Penicillins Allergy Mild UNKNOWN Verified 10/05/19 11:30 Cephalosporins Allergy Unknown KEFLEX PER Verified 10/05/19 11:30 UNCODED ALLERGIES-UNKNOWN TO PT Consultations 10/05/19 12:40 ED Decision to Admit Stat 10/05/19 16:37 Consult Case Management - Discharge Planning Routine Consult Hematology Routine 10/06/19 09:47 Consult Palliative Care Routine 10/08/19 13:32 Burn CD for patient Routine Ordered Studies 10/05/19 11:37 CT head/brain wo con Stat 10/05/19 16:37 MR brain wo con Routine US carotid doppler BI Routine 10/06/19 00:07 CT abd pelvis wo con Urgent 10/06/19 15:59 US gallbladder Routine Hospital Course (1) TIA (transient ischemic attack): Episode of non responsiveness with facial droop in the Cancer Center on 10/05 - Resolved Unclear if this was a hypotensive episode vs TIA - patient certainly could have had an unresponsive episode due to hypotension secondary to anemia. The hyperviscosity of her blood could also have contributed. Echo without wma, normal EF elevated right ventricular systolic pressure MRI brain without contrast - chronic small vessel ischemic change. No acute abnormality, no mets Carotid doppler - no hemodynamically significant stenosis CT of the head without contrast negative for stroke or bleed Physical and Occupational Therapy No antiplatelets due to thrombocytopenia, continue home simvastatin (2) Pancytopenia due to chemotherapy: Neutropenic precautions Platelets 22,000 - replace if below 10,000 or s/s of bleeding CBC am Peripheral smear showed rouleaux are present on the patients blood smear and potentially the patient may have a plasma cell dyscrasia or similar disorder. Oncology consulted - Dr. Brizuela was bedside at the time of my visit today. He did discuss patient's progressive and serious disease with Ms. Driver. He encouraged her to get a second opinion if she wanted one but was very clear that her prognosis was poor regardless of what the workup shows. (3) Malignant solitary fibrous neoplasm: Primary tape librarian oncologist is Dr. Brizuela. Severe anemia and pancytopenia is most likely due to metastatic malignant solitary fibrous neoplasm. Discussed case with Lalo Aguirre PA-C in Dr. Artis office from the Cancer [facility] at [facility] in [place]. She requests that records be sent - order placed to do so. Their office agreed that they would accept patient and after a day of consideration and discussion with her son, Ms. Driver has decided to transfer Patient's blood is too viscous to run prp, lipid panel - will continue with maintenance fluids for now (4) Anemia: Possibly due to metastatic malignant solitary fibrous neoplasm to the bone and low blood cell production. Given 2 units of blood and platelets in the emergency room for hgb 6.6- appropriate rise in hgb but has drifted back down over the last few days to 7.6 CT abdomen pelvis - large exophytic 12 cm hepatic mass, 5.2 cm left paraspinal mass, 3.5 cm solid mass in left renal hilum, skeletal mets with lytic lesions in the right acetabulum, ilium and ischial. Comminuted right acetabular fracture. Also shows: Mild gallbladder distention, multiple fluid-filled small bowel loops without evidence of a discrete transition zone - patient without any GI symptoms. - gallbladder US showed distention with sludge but no cholecystitis - will hold on any further intervention or workup unless patient develops symptoms or fever given her complex issues Consult oncology. Ortho consulted - no further work up at this time. Patient sees an oncology orthopedist in [place] (5) Hyperviscosity: Unclear source, prevents chemistry from being resulted Blood viscosity reference lab sent peripheral smear as above. (6) Gastroesophageal reflux disease: Continue home medicine pantoprazole 40 mg p.o. every morning. (7) Hyperlipemia: Fasting lipid panel unable to be run due to blood viscosity Continue simvastatin 20 mg p.o. 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 No home medication listed. (9) Hypertension: Stable. Chronic issue. Continue Lozol Continue home medicine potassium chloride 40 M EQ p.o. twice daily. Continue monitoring every 4 hours (10) Obstructive sleep apnea syndrome in adult: Offered CPAP at night. (11) Hyperglycemia: Lab value was not reportable. Repeat chemistry continues to be not reportable as above A1c 5.8 (12) Severe protein-calorie malnutrition: BMI 15 Blender Helper consult (13) Dysrhythmia: 7 beat run of Vtach overnight, a few intermittent runs of atrial tachycardia over the last couple of days. No symptoms. Unable to check electrolytes as above Total Time Total Time Spent Total Time Spent (In Minutes): greater than 30 minutes Discharge Plan Discharge Items Patient Disposition: Transfer Acute Care Hospital Reason For Visit: TIA,SEVERE ANEMIA,MALIGNANT SOLITARY FIBROUS NEOPL Discharge Diagnosis: Pancytopenia Activity: Resume your previous activity Non-emergency contact: Primary Care Provider Call non-emergency contact if: your symptoms worsen Follow-up/Referrals: Shamar Espinosa MD [Primary Care Provider] - Diet: Regular Addtl Attending Provider Instructions: (1) TIA (transient ischemic attack): Episode of non responsiveness with facial droop in the Cancer Center on 10/05 - Resolved Unclear if this was a hypotensive episode vs TIA - patient certainly could have had an unresponsive episode due to hypotension secondary to anemia. The hype rviscosity of her blood could also have contributed. Echo without wma, normal EF, elevated right ventricular systolic pressure MRI brain without contrast - chronic small vessel ischemic change. No acute abnormality, no mets Carotid doppler - no hemodynamically significant stenosis CT of the head without contrast negative for stroke or bleed Physical and Occupational Therapy No antiplatelets due to thrombocytopenia, continue home simvastatin (2) Pancytopenia due to chemotherapy: Neutropenic precautions Platelets 22,000 - replace if below 10,000 or s/s of bleeding Peripheral smear showed rouleaux are present on the patients blood smear and potentially the patient may have a plasma cell dyscrasia or similar disorder. 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 Given 2 units of blood and platelets in the emergency room 10/05 - appropriate rise in hgb with drift back down over the past few days CT abdomen pelvis - large exophytic 12 cm hepatic mass, 5.2 cm left paraspinal mass, 3.5 cm solid mass in left renal hilum, skeletal mets with lytic lesions in the right acetabulum, ilium and ischial. Comminuted right acetabular fracture. Also shows: Mild gallbladder distention, multiple fluid-filled small bowel loops without evidence of a discrete transition zone - patient without any GI symptoms. - gallbladder US showed distention with sludge but no cholecystitis - will hold on any further intervention or workup unless patient develops symptoms or fever given her complex issues Consult oncology. Ortho consulted - no further work up at this time. Patient sees an oncology orthopedist in [place] (4) Hyperviscosity: Unclear source, prevents chemistry from being resulted Blood viscosity reference lab sent peripheral smear as above. (5) Malignant solitary fibrous neoplasm, RLL: Consult tape librarian oncologist. Primary tape librarian oncologist is Dr. Brizuela, sees Dr. Barajas in [place] at the [facility] as well Severe anemia and pancytopenia is most likely due to metastatic malignant solitary fibrous neoplasm. (6) Gastroesophageal reflux disease: Continue home medicine pantoprazole 40 mg p.o. every morning. (7) Hyperlipemia: Fasting lipid panel unable to be run due to blood viscosity Continue simvastatin 20 mg p.o. nightly (8)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: Stable at this time. No home medication listed. (9) Hypertension: Stable. Chronic issue. Continue Lozol Continue home medicine potassium chloride 40 M EQ p.o. twice daily. Continue monitoring every 4 hours (10) Obstructive sleep apnea syndrome in adult: Offered CPAP at night. (11) Hyperglycemia: Lab value was not reportable. Repeat chemistry continues to be not reportable as above A1c 5.8 (12) Severe protein-calorie malnutrition: BMI 15 Blender Helper consult (13) Dysrhythmia Patient had a 7 beat run of Vtach on monitor over the night. Unable to check electrolytes. No symptoms. Echo as above Pending Studies at Discharge: Yes Studies:: Blood viscosity Stand-Alone Forms: My [facility] Skilled Items Patient informed of condition?: Yes DNR: No Discharge Level of Care: Other Communicable Disease: No Discharge Prognosis: Deteriorating Lines: Peripheral IV Urinary Catheter: No Medications and DC Order Prescriptions: Continued indapamide 1.25 mg Tablet 1.25 mg PO QAM RF: 0 simvastatin 20 mg Tablet 20 mg PO HS RF: 0 PreserVision AREDS-2 [id number] Capsule 1 tab PO AMHS RF: 0 levothyroxine 25 mcg tablet 25 mcg PO QAM RF: 0 pantoprazole 40 mg tablet,delayed release (DR/EC) 40 mg PO QAM RF: 0 Phospha 250 Neutral 250 mg tablet 250 mg PO BID RF: 0 magnesium oxide [MagOx] 400 mg (241.3 mg magnesium) tablet 400 mg PO DAILY Qty: 5 RF: 0 morphine 30 mg tablet extended release 30 mg PO BID RF: 0 potassium chloride 20 mEq tablet extended release 40 meq PO BID RF: 0 Discharge Orders: Discharge Order (Routine); Ordered 10/08/19 Ordered By: Bethany Molina Admission Data Admit Date/Time: 10/05/19 14:49 Attending Provider: Aniceto Quiles Admit Provider: Kelsye Gonsales Primary Care Provider: Shamar Espinosa Other Providers: Rodrigo Cornelius ; Aniceto Quiles ; Christine Freire
[2019-10-08 16:08] VITALS: BP 152/87; PULSE 93; TEMP 97.5; O2SAT 92
[2019-10-08] MEDS: SIMVASTATIN 20 MG TAB PO SCH (19:41)
[2019-10-09 07:32] LABS: Albumin 2.4 g/dL (3.8-4.8); Alpha 1 Globulin 0.4 g/dL (0.2-0.3); Alpha 2 Globulin 0.8 g/dL (0.5-0.9); Beta-1-Globulin 0.3 g/dL (0.4-0.6); Beta-2-Globulin 0.2 g/dL (0.2-0.5); Gamma Globulin 4.3 g/dL (0.8-1.7); Monoclonal Protein Band 1 3.8 g/dL (NONE DETECTED); Monoclonal Protein Band 2 DNR g/dL (NONE DETECTED); Monoclonal Protein Band 3 DNR g/dL (NONE DETECTED); Total Protein 8.4 g/dL (6.1-8.1)
[2019-10-12 08:41] LABS: Creatinine Ur 25 mg/dL (20-275); Protein, Urine Random 14 mg/dL (5-24); Urine Abnormal Protein Band 1 2 mg/dL (NONE DETECTED); Urine Abnormal Protein Band 2 DNR mg/dL (NONE DETECTED); Urine Abnormal Protein Band 3 DNR mg/dL (NONE DETECTED)
== END 2019-10-08 20:42 | disposition short-term general hospital (02) | DRG 542 ==
LOC: ED 10:53 → SUATTDRO 14:49 → 2S 14:49